=== PATIENT | female | born 1950 | race Caucasian/White ===

== ENCOUNTER 2016-06-28 09:25 | Outpatient (CLI) | payer MEDICARE, OTHER | END 2016-06-28 09:26 | disposition home or self-care (01) | DX: I10 Essential (primary) hypertension (principal); R73.03 Prediabetes ==

== ENCOUNTER 2017-05-18 14:02 | Emergency (ER) | payer MEDICARE, OTHER ==
[2017-05-18] MEDS ORDERED: LOPERAMIDE 2 MG CAPSULE PO STA (16:00)
[2017-05-18 16:26] VITALS: BP 104/70
--- NOTE | 2017-05-18 16:30 | ED Physician Documentation ---
PD HPI NVD - Stated complaint Stated Complaint: DIARRHEA - Chief complaint Chief Complaint: Abd Pain - History obtained from History obtained from: Patient - History of Present Illness Timing - onset: Today Timing - details: Still present Associated symptoms: No: Fever, Abdominal pain Similar symptoms before: Has not had sx before - Additonal information Additional information: The patient is a 66-year-old female who presents with diarrhea that started this morning, with about 10 episodes of watery diarrhea throughout the day. She denies abdominal pain. She has had nausea, without vomiting. She does report myalgias and a low-grade fever of 100. She denies cough, sore throat, or shortness of breath. She denies dysuria. She has no history of similar symptoms in the past. She has had a flu vaccine this year. Review of Systems Constitutional: reports: Fever (low-grade.), Fatigue Ears: denies: Tinnitus/ringing Nose: denies: Congestion Throat: denies: Sore throat Cardiac: denies: Chest pain / pressure Respiratory: reports: Cough. denies: Dyspnea GI: reports: Nausea, Diarrhea. denies: Abdominal Pain, Vomiting : denies: Dysuria Skin: denies: Rash Musculoskeletal: denies: Back pain Neurologic: reports: Headache (mild). 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 : Incontinence, Other HEENT: Chronic sinusitis Psych: Depression, Anxiety, Panic attacks, Claustrophobia Musculoskeletal: None Derm: Rosacea Other Past Medical History: NO BLOOD PRESSURE OR IV IN RIGHT ARM - Past Surgical History Past Surgical History: Yes General: Cholecystectomy, Colonoscopy /PUBLIC AREA ATTENDANT: Hysterectomy, Other - Present Medications Home Medications: Ambulatory Orders Medication Instructions Recorded Confirmed Cholecalciferol (Vitamin D3) 5,000 unit PO DAILY 02/02/15 05/18/17 [Vitamin D3] Fluticasone Propionate [Flovent 1 - 2 spray INH DAILY 02/02/15 05/18/17 Diskus] Iron Gly,Fum/C/B12/Me-Thfolate 1 each PO DAILY 02/02/15 05/18/17 [Maxaron Forte Tablet] Lisinopril 10 mg PO DAILY 02/02/15 05/18/17 Loratadine 10 mg PO DAILY 02/02/15 05/18/17 Multivitamin [Multivitamins] 1 each PO DAILY 02/02/15 05/18/17 Tretinoin [Retin-A] 1 applic TP DAILY 02/02/15 05/18/17 Venlafaxine ER [Effexor ER] 75 mg PO DAILY 02/02/15 05/18/17 metroNIDAZOLE 0.75% GEL 1 applic TOP DAILY 02/02/15 05/18/17 LORazepam [Lorazepam] 1 mg PO Q8H PRN 02/04/15 05/18/17 Glutamine [l-Glutamine] 3 gm PO DAILY 05/25/15 05/18/17 Anastrozole [Anastrozole] 1 mg PO DAILY 08/17/15 05/18/17 Omeprazole 40 mg PO DAILY 09/07/15 05/18/17 buPROPion [Wellbutrin Sr] 150 mg PO DAILY 01/11/16 05/18/17 Amox/Clav 500/125 [Augmentin] 1 each PO Q12H 08/15/16 05/18/17 Loperamide [Imodium] 2 mg PO BID PRN #10 capsule 05/18/17 Promethazine [Phenergan] 25 - 50 mg PO Q6H PRN #10 tab 05/18/17 - Allergies Allergies/Adverse Reactions: Allergies Allergy/AdvReac Type Severity Reaction Status Date / Time ciprofloxacin Allergy Intermediate Respiratory Verified 12/01/15 19:25 hydrocodone bitartrate * Allergy Intermediate Respiratory Verified 12/01/15 19: 25 [From Vicodin] Sulfa (Sulfonamide Allergy Intermediate Respiratory Verified 12/01/15 19:25 Antibiotics) NSAIDS (Non-Steroidal AdvReac Intermediate GI Distress Verified 12/01/15 19:25 Anti-Inflamma - Social History Does the pt smoke?: No Smoking Status: Never smoker Does the pt drink ETOH?: Yes Does the pt have substance abuse?: No - Immunizations Immunizations are current?: Yes - POLST Patient has POLST: Yes PD ED PE NORMAL - Vitals Vital signs reviewed: Yes (Borderline hypertension initially, but it normalized prior to discharge.) - General General: Alert and oriented X 3, Well developed/nourished - HEENT HEENT: Atraumatic, Moist mucous membranes, Pharynx benign - Neck Neck: No adenopathy, No JVD - Cardiac Cardiac: RRR, No murmur - Respiratory Respiratory: No respiratory distress, Clear bilaterally - Abdomen Abdomen: Normal bowel sounds, Soft, Non tender - Back Back: No CVA TTP - Derm Derm: No rash - Extremities Extremities: No edema, No calf tenderness / cord - Neuro Neuro: Alert and oriented X 3, No motor deficit, No sensory deficit Results - Vitals Vitals: Oxygen O2 Source Room air PD MEDICAL DECISION MAKING - ED course Complexity details: re-evaluated patient, considered differential, d/w patient ED course: The patient's presentation is most consistent with viral gastroenteritis with watery diarrhea. She does not appear dehydrated, and her abdominal exam is benign. Treatment in the emergency department included administration of Imodium 2 mg orally. She subsequently demonstrated ability to drink fluids without recurrent symptoms. She is being discharged with a prescription for Imodium and for Phenergan. I discussed with her the expected course of illness , symptomatic treatment and outpatient follow-up, as well as potentially worrisome signs or symptoms that should prompt reevaluation in the emergency department. Departure - Departure Disposition: 01 Home, Self Care Clinical Impression: Diarrhea Qualifiers: Diarrhea type: unspecified type Qualified Code(s): R19.7 - Diarrhea, unspecified Condition: Stable Instructions: ED Diarrhea Viral Follow-Up: Briana Blue MD [Primary Care Provider] - Prescriptions: Loperamide [Imodium] 2 mg PO BID PRN #10 capsule PRN Reason: Diarrhea Promethazine [Phenergan] 25 - 50 mg PO Q6H PRN #10 tab PRN Reason: Nausea / Vomiting Comments: Drink plenty of fluids. You can use Imodium as prescribed if needed for persistent diarrhea. Eat foods that are easily digestible, such as chicken noodle soup. Follow up with your primary physician within 1-2 weeks if not completely resolved. Return to the emergency department if you develop increasing abdominal pain, dehydration, or otherwise worsening symptoms. Discharge Date/Time: 05/18/17 16:34
== END 2017-05-18 16:34 | disposition home or self-care (01) ==
LOC: ED 14:02
DX: R19.7 Diarrhea, unspecified (principal); I10 Essential (primary) hypertension; G47.30 Sleep apnea, unspecified; K21.9 Gastro-esophageal reflux disease without esophagitis; Z86.010 Personal history of colon polyps; Z85.3 Personal history of malignant neoplasm of breast
CPT/HCPCS: 99283; A9270

== ENCOUNTER 2017-06-02 14:10 | Emergency (ER) | payer MEDICARE, OTHER ==
[2017-06-02 14:23] VITALS: BP 143/88
--- NOTE | 2017-06-02 14:49 | ED Physician Documentation ---
PD HPI Fall - Stated complaint Stated Complaint: HEAD PX/GLF - Chief complaint Chief Complaint: Neuro - History obtained from History obtained from: Patient - History of Present Illness Mechanism of injury: Slipped (she was standing on porch and missed edge as she stepped, falling backward onto buttock then back of head. Mild dizzy and nausea at the time, which persists into today.) Fall distance: Standing position Where injury occurred: Home Timing - onset: Last night Injury(ies) location: Head, Other (buttocks) Quality of pain: Aching Associated symptoms: AMS (dazed and feeling somewhat slow thinking and dizziness today. Has some vertigo component.). No: LOC, Amnesia, Weakness, Paresthesias, Nausea / vomiting Worsens with: Movement (feels dizzy with head movement, has some history of BPV in the past.), Palpation Contributing factors: No: Anticoagulated Similar symptoms before: Diagnosis (has BPV in the past, with some dizziness at times, usually brief.) Recently seen: Not recently seen Review of Systems Constitutional: denies: Fever, Chills Eyes: denies: Loss of vision, Decreased vision Nose: denies: Rhinorrhea / runny nose, Congestion Throat: denies: Sore throat Cardiac: denies: Chest pain / pressure, Palpitations Respiratory: denies: Cough GI: reports: Nausea. denies: Abdominal Pain, Vomiting, Diarrhea : denies: Dysuria, Frequency Skin: denies: Abrasion (s), Laceration (s) Neurologic: reports: Headache, Head injury. 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 : Incontinence, Other HEENT: Chronic sinusitis Psych: Depression, Anxiety, Panic attacks, Claustrophobia Musculoskeletal: None Derm: Rosacea - Past Surgical History Past Surgical History: Yes General: Cholecystectomy, Colonoscopy /BULK RECEIVER: Hysterectomy, Other - Present Medications Home Medications: Ambulatory Orders Medication Instructions Recorded Confirmed Cholecalciferol (Vitamin D3) 5,000 unit PO DAILY 02/02/15 06/02/17 [Vitamin D3] Lisinopril 10 mg PO DAILY 02/02/15 06/02/17 Loratadine 10 mg PO DAILY 02/02/15 06/02/17 Multivitamin [Multivitamins] 1 each PO DAILY 02/02/15 06/02/17 Tretinoin [Retin-A] 1 applic TP DAILY 02/02/15 06/02/17 Venlafaxine ER [Effexor ER] 112.5 mg PO DAILY 02/02/15 06/02/17 Anastrozole [Anastrozole] 1 mg PO DAILY 08/17/15 06/02/17 Omeprazole 40 mg PO DAILY 09/07/15 06/02/17 buPROPion [Wellbutrin Sr] 150 mg PO DAILY 01/11/16 06/02/17 - Allergies Allergies/Adverse Reactions: Allergies Allergy/AdvReac Type Severity Reaction Status Date / Time ciprofloxacin Allergy Intermediate Respiratory Verified 06/02/17 14:23 hydrocodone bitartrate * Allergy Intermediate Respiratory Verified 06/02/17 14: 23 [From Vicodin] Sulfa (Sulfonamide Allergy Intermediate Respiratory Verified 06/02/17 14:23 Antibiotics) NSAIDS (Non-Steroidal AdvReac Intermediate GI Distress Verified 06/02/17 14:23 Anti-Inflamma - Social History Does the pt smoke?: No Smoking Status: Never smoker Does the pt drink ETOH?: Yes Does the pt have substance abuse?: No - Immunizations Immunizations are current?: Yes - POLST Patient has POLST: Yes PD ED PE NORMAL - Vitals Vital signs reviewed: Yes - General General: Alert and oriented X 3, No acute distress, Well developed/nourished - HEENT HEENT: PERRL, EOMI, Pharynx benign, Other (posterior scalp with mild swelling locally and tender. ) - Neck Neck: Supple, no meningeal sign, No adenopathy - Cardiac Cardiac: RRR, No murmur - Respiratory Respiratory: Clear bilaterally - Abdomen Abdomen: Soft, Non tender - Back Back: No CVA TTP, No spinal TTP - Derm Derm: Normal color, Warm and dry - Extremities Extremities: No tenderness to palpate, Normal ROM s pain, Other (mild soft tissue tenderness right gluteal. No bony tenderness. ) - Neuro Neuro: Alert and oriented X 3, director specialty 2-12 intact, No motor deficit, No sensory deficit, Normal speech, Other Eye Opening: Spontaneous Motor: Obeys Commands Verbal: Oriented GCS Score: 15 - Psych Psych: Normal mood, Normal affect Results - Vitals Vitals: Oxygen O2 Source Room air - Rads (name of study) head Radiology: Prelim report reviewed, EMP read contemporaneously (no acute process) PD MEDICAL DECISION MAKING - ED course Complexity details: considered differential, d/w patient Departure - Departure Disposition: 01 Home, Self Care Clinical Impression: Accidental fall Qualifiers: Encounter type: initial encounter Qualified Code(s): W19.XXXA - Unspecified fall, initial encounter Head contusion Qualifiers: Encounter type: initial encounter Contusion of head detail: scalp Qualified Code(s): S00.03XA - Contusion of scalp, initial encounter Mild concussion Qualifiers: Encounter type: initial encounter Loss of consciousness presence/duration: without LOC Qualified Code(s): S06.0X0A - Concussion without loss of consciousness, initial encounter Condition: Stable Record reviewed to determine appropriate education?: Yes Instructions: ED Concussion Follow-Up: Briana Blue MD [Primary Care Provider] - Comments: Ibuprofen if needed for pains or headache. He can use meclizine for dizziness. The CT scan appears normal so no bleeding or obvious swelling. It does sound like mild concussive symptoms in these typically decrease over several days. It is possible to have jostled the balance center in the inner ear as well and would also taper down over several days typically. Discharge Date/Time: 06/02/17 16:23
[2017-06-02] MEDS ORDERED: ACETAMINOPHEN 325 MG TABLET PO STA (15:12)
--- NOTE | 2017-06-02 16:00 | CT Report ---
EXAM: CT HEAD EXAM DATE: 06/02/2017 03:52 PM. CLINICAL HISTORY: Fell last night, struck back of head. Mild concussion. COMPARISON: None. TECHNIQUE: Multiaxial CT images were obtained from the foramen magnum to the vertex. Reformats: Coron al. IV contrast: None. In accordance with CT protocol optimization, one or more of the following dose reduction techniques w ere utilized for this exam: automated exposure control, adjustment of mA and/or KV based on patient s ize, or use of iterative reconstructive technique. FINDINGS: Parenchyma: No intraparenchymal hemorrhage. No evidence of mass, midline shift, or CT findings of acu te infarction. José-white differentiation is distinct. Diffuse chronic microangiopathic white matter changes are evident. Extraaxial Spaces: Normal for age. No subdural or epidural collections identified. Ventricles: The ventricles and cortical sulci are enlarged, consistent with age-related tissue loss. Sinuses and orbits: Imaged paranasal sinuses, orbits, and mastoids show no significant abnormality. Bones: No evidence of fracture or calvarial defect. Other: None. IMPRESSION: Generalized age-related cortical atrophic changes without evidence of acute intracranial abnormality. [facility] Referring Provider Line: [phone] SITE ID: [id number]
== END 2017-06-02 16:23 | disposition home or self-care (01) ==
LOC: ED 14:10
DX: S00.03XA Contusion of scalp, initial encounter (principal); S06.0X9A Concussion with loss of consciousness of unspecified duration, initial encounter; W01.10XA Fall on same level from slipping, tripping and stumbling with subsequent striking against unspecified object, initial encounter; I10 Essential (primary) hypertension
CPT/HCPCS: 70450; 99282; 99283; A9270

== ENCOUNTER 2018-11-18 16:18 | Emergency (ER) | payer MEDICARE, OTHER ==
--- NOTE | 2018-11-18 17:30 | ED Physician Documentation ---
PD HPI HEENT - Stated complaint Stated Complaint: NAUSEA - Chief complaint Chief Complaint: Heent - History obtained from History obtained from: Patient - History of Present Illness Timing - onset: How many days ago (few) Timing - duration: Days (few) Timing - details: Abrupt onset (noted onset when turned head and has had it persist. Has had some nasal and sinus congestion the past few days as well. Has had BPV with vertigo on certain movements in the past, often, but usually only lasts minutes or hours.), Still present Location: Sinuses (some pressure feeling). No: Right ear, Left ear, Throat Improves: Other (holding head still) Worsens: Position, Other (head movement) Associated symptoms: Congestion. No: Fever, Unable to swallow, Facial swelling, Headache, Cough Similar symptoms before: Diagnosis (BPV per ENT eval. Has had it intermittently for years.) Recently seen: Not recently seen Review of Systems Constitutional: denies: Fever Eyes: denies: Loss of vision, Decreased vision Ears: denies: Ear pain, Drainage/discharge, Tinnitus/ringing Nose: reports: Congestion, Sinus pressure / pain (for few days). 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 TECHNOLOGIST: Hysterectomy, Other - Present Medications Home Medications: Ambulatory Orders Medication Instructions Recorded Confirmed Cholecalciferol (Vitamin D3) 5,000 unit PO DAILY 02/02/15 05/28/18 [Vitamin D3] Lisinopril 10 mg PO DAILY 02/02/15 05/28/18 Multivitamin [Multivitamins] 1 each PO DAILY 02/02/15 05/28/18 Tretinoin [Retin-A] 1 applic TP DAILY 02/02/15 05/28/18 Venlafaxine ER [Effexor ER] 112.5 mg PO DAILY 02/02/15 05/28/18 Omeprazole 40 mg PO DAILY 09/07/15 05/28/18 buPROPion [Wellbutrin Sr] 150 mg PO DAILY 01/11/16 05/28/18 Metronidazole [Metrocream] 2 applic TOP DAILY 11/27/17 05/28/18 Anastrozole 1 mg PO DAILY 90 Days #90 tablet 07/18/18 Cetirizine [ZyrTEC] 10 mg PO DAILY 11/18/18 11/18/18 Lisinopril 11/18/18 Ondansetron Odt [Zofran] 4 mg TL Q6H PRN #15 tablet 11/18/18 dexAMETHasone [Decadron] 4 mg PO DAILY #5 tablet 11/18/18 diazePAM [Diazepam] 5 mg PO TID PRN #20 tablet 11/18/18 - Allergies Allergies/Adverse Reactions: Allergies Allergy/AdvReac Type Severity Reaction Status Date / Time ciprofloxacin Allergy Intermediate Respiratory Verified 11/18/18 16:26 hydrocodone bitartrate * Allergy Intermediate Respiratory Verified 11/18/18 16:26 [From Vicodin] Sulfa (Sulfonamide Allergy Intermediate Respiratory Verified 11/18/18 16:26 Antibiotics) NSAIDS (Non-Steroidal AdvReac Intermediate GI Distress Verified 11/18/18 16:26 Anti-Inflamma - Social History Does the pt smoke?: No Smoking Status: Never smoker Does the pt drink ETOH?: Yes Does the pt have substance abuse?: No - Immunizations Immunizations are current?: Yes - POLST Patient has POLST: Yes PD ED PE NORMAL - Vitals Vital signs reviewed: Yes - General General: Alert and oriented X 3, No acute distress (but holding head pretty still. ), Well developed/nourished - HEENT HEENT: PERRL, EOMI (with nystagmus fast component to the right. ) - Neck Neck: Supple, no meningeal sign, No adenopathy - Cardiac Cardiac: RRR, No murmur - Respiratory Respiratory: Clear bilaterally - Derm Derm: Normal color, Warm and dry - Neuro Neuro: Alert and oriented X 3, crop roller 2-12 intact, No motor deficit, No sensory deficit, Normal speech Eye Opening: Spontaneous Motor: Obeys Commands Verbal: Oriented GCS Score: 15 - Psych Psych: Normal mood, Normal affect Results - Vitals Vitals: Vital Signs - 24 hr 11/18/18 11/18/18 16:23 18:47 Temperature 36.0 C L 36.1 C L Heart Rate 84 88 Respiratory 18 18 Rate Blood Pressure 167/95 H 147/83 H O2 Saturation 96 98 Oxygen O2 Source Room air PD MEDICAL DECISION MAKING - ED course Complexity details: considered differential (recurrent vertigo that seems peripheral. ), d/w patient Departure - Departure Disposition: 01 Home, Self Care Clinical Impression: Vertigo Nausea and vomiting Qualifiers: Vomiting type: unspecified Vomiting Intractability: non-intractable Qualified Code(s): R11.2 - Nausea with vomiting, unspecified Condition: Stable Record reviewed to determine appropriate education?: Yes Instructions: ED Vertigo Unspecified Follow-Up: Briana Blue MD [Primary Care Provider] - Prescriptions: dexAMETHasone [Decadron] 4 mg PO DAILY #5 tablet diazePAM [Diazepam] 5 mg PO TID PRN #20 tablet PRN Reason: Vertigo Ondansetron Odt [Zofran] 4 mg TL Q6H PRN #15 tablet PRN Reason: Nausea / Vomiting Comments: Continue your current medications and meclizine. To it add Decadron steroid for presumed inflammation of the middle ear. Add diazepam 3 times a day if needed for vertigo/dizziness to supplement your meclizine. Add ondansetron if needed for just nausea. Activity as tolerated. Follow-up with your primary care if still not improved in the next couple of days. Discharge Date/Time: 11/18/18 18:56
[2018-11-18] MEDS ORDERED: DEXAMETHASONE 10 MG/ML VIAL PO STA (17:44)
[2018-11-18] MEDS ORDERED: CHERRY SYRUP 10 ML UDC PO ONE (17:44)
[2018-11-18] MEDS ORDERED: diazePAM 5 MG TABLET PO STA (17:44)
[2018-11-18] MEDS ORDERED: ONDANSETRON ODT 4 MG TABLET TL STA (17:44)
[2018-11-18] MEDS ORDERED: MECLIZINE 12.5 MG TABLET PO STA (17:45)
[2018-11-18 18:47] VITALS: BP 147/83
== END 2018-11-18 18:56 | disposition home or self-care (01) ==
LOC: ED 16:18
DX: R11.2 Nausea with vomiting, unspecified (principal); I10 Essential (primary) hypertension
CPT/HCPCS: 99282; 99284; A9270; Q0162

== ENCOUNTER 2019-06-24 13:35 | Outpatient (CLI) | payer MEDICARE, OTHER ==
--- NOTE | 2019-07-01 12:20 | DEXA Report ---
Reason: POSTMENOPAUSAL Procedure Date: 06/24/2019 Accession Number: [id number] / [id number] Procedure: DEX - Dexa Spine and/or Hip CPT Code: Final Report FULL RESULT: EXAM: Dexa Spine and/or Hip DATE: 06/24/2019 2:17 PM CLINICAL HISTORY: POSTMENOPAUSAL TECHNIQUE: Dual energy x-ray absorptiometry (DXA) was performed on a [employer] System. Regions measured are the AP Spine, femoral neck, and if needed forearm. COMPARISON: None. In accordance with the International Society for Clinical Densitometry (ISCD) guidelines, data from previous exams may be reanalyzed using current recommendations and techniques. This is done to allow a more accurate basis for comparison with the current study. FINDINGS: The data for the lumbar spine is as follows: BMD (g/cm/cm) T-SCORE Z-SCORE REGION L1 1.095 -0.3 0.2 L2 1.298 0.8 1.3 L3 1.333 1.1 1.6 L4 1.317 1.0 1.5 TOTAL 1.269 0.7 1.2 NOTE: All evaluable vertebrae are used for classification The data for the hip is as follows: BMD (g/cm/cm) T-SCORE Z-SCORE REGION Neck 0.840 -1.4 -0.6 TOTAL 0.941 -0.5 0.0 NOTE: The femoral neck or total proximal femur, whichever is lowest, is used for classification. IMPRESSION: THE WHO CLASSIFICATION BASED ON THE INTERNATIONAL REFERENCE STANDARD IS OSTEOPENIA. THE FRACTURE RISK IS INCREASED. RECOMMENDATION: Patients with diagnosis of osteoporosis or osteopenia should have regular bone mineral density assessment. For those eligible for Medicare, routine testing is allowed once every 2 years. Testing frequency can be increased for patients who have rapidly progressing disease or for those who are receiving medical therapy to restore bone mass. COMMENT: World Health Organization (WHO) definitions for osteoporosis and osteopenia: NORMAL BMD: T-score at -1.0 or higher, fracture risk is low OSTEOPENIA BMD: T-score between -1.0 and -2.5, fracture risk is increased. OSTEOPOROSIS BMD: T-score at -2.5 or lower, fracture risk is high. National Osteoporosis Foundation recommends: 1. Obtain adequate dietary calcium (at least 1200 mg per day) and vitamin D (400-800 international units per day). 2. Participate, as appropriate, in regular weightbearing and muscle-strengthening exercise. 3. Avoid tobacco use and reduce alcohol and caffeine intake. 4. For more detailed information see the website at www.NOF.org.
== END 2019-06-24 13:36 | disposition home or self-care (01) ==
LOC: DI 13:35
PROVIDERS: ATTEND Internal Medicine Hematology & Oncology
DX: Z78.0 Asymptomatic menopausal state (principal); C50.911 Malignant neoplasm of unspecified site of right female breast; M85.88 Other specified disorders of bone density and structure, other site
CPT/HCPCS: 77080

== ENCOUNTER 2019-10-09 09:08 | Outpatient (CLI) | payer MEDICARE, OTHER ==
[2019-10-09 09:28] LABS: BASOPHILS % (AUTO) 0.9 %; EOSINOPHILS # (AUTO) 0.1 10^3/uL (0.0-0.7); HGB - HEMOGLOBIN 12.1 g/dL (12.0-16.0); LYMPHOCYTES # (AUTO) 1.2 10^3/uL (1.5-3.5); LYMPHOCYTES % (AUTO) 27.3 %; MEAN CORPUSCULAR HEMOGLOBIN 25.4 pg (27.0-31.0); MEAN CORPUSCULAR HGB CONC 31.5 g/dL (32.0-36.0); MEAN CORPUSCULAR VOLUME 80.7 fL (81.0-99.0); MEAN PLATELET VOLUME 8.6 fL (7.9-10.8); MONOCYTES # (AUTO) 0.4 10^3/uL (0.0-1.0); MONOCYTES % (AUTO) 9.2 %; NEUTROPHILS # (AUTO) 2.7 10^3/uL (1.5-6.6); NEUTROPHILS % (AUTO) 60.2 %; PLT - PLATELET COUNT 287 10^3/uL (130-450); RED BLOOD COUNT 4.76 10^6/uL (4.20-5.40); RED CELL DISTRIBUTION WIDTH 15.5 % (12.0-15.0); WHITE BLOOD COUNT 4.6 x10^3/uL (4.8-10.8)
[2019-10-09 09:41] LABS: HB2 TOTAL 12.5 g/dL; HEMOGLOBIN A1C 0.49 g/dL; HEMOGLOBIN A1C % 5.7 % (4.6-6.2)
[2019-10-09 09:52] LABS: ALBUMIN 3.7 g/dL (3.2-5.5); ALBUMIN/GLOBULIN RATIO 1.1 (1.0-2.2); ALKALINE PHOSPHATASE 68 IU/L (42-121); ALT ALANINE AMINOTRANSFERASE 21 IU/L (10-60); AST ASPARTATE AMINOTRANSFERASE 20 IU/L (10-42); BILIRUBIN,TOTAL 0.6 mg/dL (0.2-1.0); BUN - BLOOD UREA NITROGEN 16 mg/dL (6-20); CARBON DIOXIDE - CO2 25 mmol/L (21-32); CHLORIDE 107 mmol/L (101-111); CHOLESTEROL 186 mg/dL; CREATININE 0.8 mg/dL (0.4-1.0); GLUCOSE 125 mg/dL (70-100); HDL CHOLESTEROL 61 mg/dL; LDL CHOLESTEROL,CALCULATED 109 mg/dL; LDL/HDL RATIO 1.8 (<4.4); SODIUM 141 mmol/L (135-145); TOTAL PROTEIN 7.2 g/dL (6.7-8.2); VLDL CHOLESTEROL 16 mg/dL
== END 2019-10-09 09:09 | disposition home or self-care (01) ==
LOC: LAB 09:08
PROVIDERS: ATTEND Internal Medicine
DX: Z00.00 Encounter for general adult medical examination without abnormal findings (principal); C50.911 Malignant neoplasm of unspecified site of right female breast; Z17.0 Estrogen receptor positive status [ER+]; Z68.41 Body mass index [BMI] 40.0-44.9, adult; I10 Essential (primary) hypertension; R73.03 Prediabetes; E78.00 Pure hypercholesterolemia, unspecified
CPT/HCPCS: 36415; 80053; 80061; 83036; 83721; 84443; 85025

== ENCOUNTER 2020-10-12 13:12 | Outpatient (CLI) | payer MEDICARE, OTHER ==
[2020-10-12 13:38] LABS: BASOPHILS # (AUTO) 0.1 10^3/uL (0.0-0.1); EOSINOPHILS # (AUTO) 0.1 10^3/uL (0.0-0.7); EOSINOPHILS % (AUTO) 1.8 %; LYMPHOCYTES # (AUTO) 2.1 10^3/uL (1.5-3.5); LYMPHOCYTES % (AUTO) 41.7 %; MEAN CORPUSCULAR HEMOGLOBIN 25.3 pg (27.0-31.0); MEAN CORPUSCULAR HGB CONC 30.8 g/dL (32.0-36.0); MEAN CORPUSCULAR VOLUME 82.3 fL (81.0-99.0); MEAN PLATELET VOLUME 8.6 fL (7.9-10.8); MONOCYTES # (AUTO) 0.6 10^3/uL (0.0-1.0); MONOCYTES % (AUTO) 11.5 %; NEUTROPHILS # (AUTO) 2.2 10^3/uL (1.5-6.6); NEUTROPHILS % (AUTO) 43.6 %; PLT - PLATELET COUNT 287 10^3/uL (130-450); RED BLOOD COUNT 4.74 10^6/uL (4.20-5.40)
[2020-10-12 14:11] LABS: THYROID STIMULATING HORMONE 2.03 uIU/mL (0.34-5.60)
[2020-10-12 14:14] LABS: ALBUMIN 4.2 g/dL (3.2-5.5); ALBUMIN/GLOBULIN RATIO 1.4 (1.0-2.2); BILIRUBIN,TOTAL 0.4 mg/dL (0.2-1.0); CREATININE 0.8 mg/dL (0.4-1.0); POTASSIUM 4.3 mmol/L (3.5-5.0); TOTAL PROTEIN 7.3 g/dL (6.7-8.2)
== END 2020-10-12 13:13 | disposition home or self-care (01) ==
LOC: LAB 13:12
PROVIDERS: ATTEND Family Medicine
DX: R19.7 Diarrhea, unspecified (principal)
CPT/HCPCS: 36415; 80053; 84443; 85025

== ENCOUNTER 2020-10-13 08:00 | Outpatient (CLI) | payer MEDICARE, OTHER | END 2020-10-13 23:59 | disposition home or self-care (01) | LOC: LAB.R 08:00 | PROVIDERS: ATTEND Family Medicine | DX: R19.7 Diarrhea, unspecified (principal) | CPT/HCPCS: 81599; 87329 ==

== ENCOUNTER 2020-10-13 10:45 | Outpatient (CLI) | payer MEDICARE, OTHER ==
[2020-11-11 14:51] LABS: H. PYLORIS ANTIGEN STL NEGATIVE (Negative)
== END 2020-10-13 23:59 | disposition home or self-care (01) ==
LOC: LAB.R 10:45
PROVIDERS: ATTEND Family Medicine
DX: K21.9 Gastro-esophageal reflux disease without esophagitis (principal); R10.13 Epigastric pain
CPT/HCPCS: 87338

== ENCOUNTER 2020-11-15 11:12 | Outpatient (CLI) | payer MEDICARE, OTHER | END 2020-11-15 11:13 | disposition home or self-care (01) | LOC: LAB 11:12 | PROVIDERS: ATTEND Internal Medicine Gastroenterology | DX: Z01.812 Encounter for preprocedural laboratory examination (principal); Z86.010 Personal history of colon polyps; Z20.822 Contact with and (suspected) exposure to COVID-19 ==

== ENCOUNTER 2020-11-26 14:19 | Outpatient (CLI) | payer MEDICARE, OTHER | END 2020-11-26 14:20 | disposition home or self-care (01) | LOC: COV 14:19 | PROVIDERS: ATTEND Internal Medicine Gastroenterology | DX: Z01.812 Encounter for preprocedural laboratory examination (principal); Z20.822 Contact with and (suspected) exposure to COVID-19 ==

== ENCOUNTER 2021-02-28 18:52 | Emergency (ER) | payer MEDICARE, OTHER ==
[2021-02-28] MEDS ORDERED: ONDANSETRON 4 MG/2 ML VIAL IVP STA (20:03)
--- NOTE | 2021-02-28 20:05 | ED Physician Documentation ---
PD HPI FOCAL NEURO - Stated complaint Stated Complaint: HEADACHE/NAUSEA - Chief complaint Chief Complaint: Neuro - History obtained from History obtained from: Patient - Additional information Additional information: 70-year-old woman with remote history of resolved breast cancer. No history of primary headache syndrome. She is been having daily bandlike headaches around the back of her head for the last 3 weeks. Today worse but the headache is better now. It is associated with nausea. Was better yesterday after taking some Flonase and Mucinex, but recurred today. She not really having any sinus symptoms per se. 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, Other HEENT: Chronic sinusitis Psych: Depression, Anxiety, Panic attacks, Claustrophobia Musculoskeletal: None Derm: Rosacea - Past Surgical History Past Surgical History: Yes General: Cholecystectomy, Colonoscopy /REGIONAL SALES DIRECTOR: Hysterectomy, Other - Present Medications Home Medications: Ambulatory Orders Medication Instructions Recorded Confirmed Cholecalciferol (Vitamin D3) 5,000 unit PO DAILY 02/02/15 02/15/21 [Vitamin D3] Multivitamin [Multivitamins] 1 each PO DAILY 02/02/15 02/15/21 Tretinoin [Retin-A] 1 applic TP DAILY 02/02/15 02/15/21 Venlafaxine ER [Effexor ER] 112.5 mg PO DAILY 02/02/15 02/15/21 lisinopriL [Lisinopril] 10 mg PO DAILY 02/02/15 02/15/21 Omeprazole 40 mg PO DAILY 09/07/15 02/15/21 buPROPion [Wellbutrin Sr] 150 mg PO DAILY 01/11/16 02/15/21 Metronidazole [Metrocream] 2 applic TOP DAILY 11/27/17 02/15/21 Anastrozole 1 mg PO DAILY 90 Days #90 tablet 07/18/18 02/15/21 Cetirizine [ZyrTEC] 10 mg PO DAILY 11/18/18 02/15/21 Ondansetron Odt [Zofran] 4 mg TL Q6H PRN #10 tablet 02/28/21 - Allergies Allergies/Adverse Reactions: Allergies Allergy/AdvReac Type Severity Reaction Status Date / Time ciprofloxacin Allergy Intermediate Respiratory Verified 02/28/21 19:16 hydrocodone bitartrate * Allergy Intermediate Respiratory Verified 02/28/21 19:16 [From Vicodin] Sulfa (Sulfonamide Allergy Intermediate Respiratory Verified 02/28/21 19:16 Antibiotics) NSAIDS (Non-Steroidal AdvReac Intermediate GI Distress Verified 02/28/21 19:16 Anti-Inflamma - Social History Does the pt smoke?: No Smoking Status: Never smoker Does the pt drink ETOH?: Yes Does the pt have substance abuse?: No - Immunizations Immunizations are current?: Yes - POLST Patient has POLST: Yes PD ED PE NORMAL - Vitals Vital signs reviewed: Yes - General General: Alert and oriented X 3, No acute distress - HEENT HEENT: PERRL, EOMI, Pharynx benign - Neck Neck: Supple, no meningeal sign, No bony TTP - Cardiac Cardiac: RRR, No murmur - Respiratory Respiratory: No respiratory distress, Clear bilaterally - Abdomen Abdomen: Non tender - Derm Derm: Normal color, Warm and dry - Extremities Extremities: No edema, No calf tenderness / cord - Neuro Neuro: Alert and oriented X 3, Normal speech, Other (NIH stroke scale of 0) Results - Vitals Vitals: Vital Signs - 24 hr 02/28/21 02/28/21 02/28/21 19:09 21:20 22:09 Temperature 36.8 C 36.8 C Heart Rate 86 84 100 Respiratory 16 17 18 Rate Blood Pressure 146/99 H 154/84 H 162/98 H O2 Saturation 96 99 100 Oxygen O2 Source Room air - Labs Labs: Laboratory Tests 02/28/21 02/28/21 20:15 20:15 WBC 7.8 RBC 4.82 Hgb 12.5 Hct 40.5 MCV 84.0 MCH 25.9 L MCHC 30.9 L RDW 14.8 Plt Count 317 MPV 9.0 Neut # (Auto) 6.2 Lymph # (Auto) 1.0 L [place] # (Auto) 0.5 Eos # (Auto) 0.0 Baso # (Auto) 0.1 Absolute Nucleated RBC 0.00 Nucleated RBC % 0.0 Sodium 135 Potassium 3.8 Chloride 100 L Carbon Dioxide 26 Anion Gap 9.0 BUN 13 Creatinine 0.8 Estimated GFR (MDRD) 71 L Glucose 153 H Calcium 8.8 PD MEDICAL DECISION MAKING - ED course ED course: Kory is available at [phone] 70 yo female with daily headaches x 3 weeks without previous primary headache syndrome. Hx is not c/w meningitis, SAH. DDx still includes tumor, aneurysm et al. CTA as shown and concern for enlarged sella. D/W pt and need for f/u MRI, but not too urgent since similar milder findings on CT 3 yrs ago. Departure - Departure Disposition: 01 Home, Self Care Clinical Impression: Headache, Shallow and elongated sella turcica Condition: Good Record reviewed to determine appropriate education?: Yes Instructions: ED Cephalgia Unspecified Prescriptions: Ondansetron Odt [Zofran] 4 mg TL Q6H PRN #10 tablet PRN Reason: Nausea / Vomiting Comments: As discussed, talk with your PCP about MRI brain pituitary protocol. Return if worse. Discharge Date/Time: 02/28/21 22:09
[2021-02-28 20:26] LABS: BASOPHILS # (AUTO) 0.1 10^3/uL (0.0-0.1); BASOPHILS % (AUTO) 0.6 %; EOSINOPHILS % (AUTO) 0.4 %; HCT - HEMATOCRIT 40.5 % (37.0-47.0); HGB - HEMOGLOBIN 12.5 g/dL (12.0-16.0); LYMPHOCYTES % (AUTO) 12.4 %; MEAN CORPUSCULAR HEMOGLOBIN 25.9 pg (27.0-31.0); MEAN CORPUSCULAR HGB CONC 30.9 g/dL (32.0-36.0); MONOCYTES # (AUTO) 0.5 10^3/uL (0.0-1.0); MONOCYTES % (AUTO) 6.8 %; NEUTROPHILS # (AUTO) 6.2 10^3/uL (1.5-6.6); NEUTROPHILS % (AUTO) 79.5 %; PLT - PLATELET COUNT 317 10^3/uL (130-450); RED BLOOD COUNT 4.82 10^6/uL (4.20-5.40); RED CELL DISTRIBUTION WIDTH 14.8 % (12.0-15.0); WHITE BLOOD COUNT 7.8 x10^3/uL (4.8-10.8)
[2021-02-28 20:33] LABS: CALCIUM 8.8 mg/dL (8.5-10.3); CREATININE 0.8 mg/dL (0.4-1.0); POTASSIUM 3.8 mmol/L (3.5-5.0)
[2021-02-28] MEDS ORDERED: IOVERSOL 320 100 ML VIAL IVP ONE ×2 (20:43→21:08)
[2021-02-28] MEDS ORDERED: ACETAMINOPHEN 325 MG TABLET PO STA (21:22)
--- NOTE | 2021-02-28 21:31 | CT Report ---
PROCEDURE: ANGIO HEAD W/WO INDICATIONS: Headache CONTRAST: IV CONTRAST: Optiray 320 ml: 80 PO CONTRAST: *NO PO CONTRAST TECHNIQUE: Precontrast 4.5 mm thick angled axial sections acquired from the foramen magnum to the vertex. Afte r the administration of intravenous contrast, 1 mm thick sections acquired through the [place] of [place] is. Postcontrast 4.5 mm thick sections then re-acquired from the foramen magnum to the vertex. 3-di mensional fgupsjf-umdhwpbko-ouacxhlbjy (MIP) and/or volume rendering reformats were acquired of the c entral intracranial vasculature. For radiation dose reduction, the following was used: automated ex posure control, adjustment of mA and/or kV according to patient size. COMPARISON: 06/02/[address] FINDINGS: Image quality: Excellent. Anterior circulation: Intracranial internal carotid arteries are normal in size and flow. The flow within the paired anterior cerebral arteries is normal and symmetric. The flow within the middle cer ebral arteries is normal and symmetric. The anterior communicating artery is seen. No aneurysms are seen. Posterior circulation: Visualized portions of the vertebral arteries demonstrate normal caliber, and join to form a normal appearing basilar artery. Flow within the posterior cerebral arteries is norm al and symmetric. No aneurysms are seen. CSF spaces: Ventricles are normal in size and shape. Basal cisterns are patent. No extra-axial flu id collections. Brain: Marked enlargement of the sella turcica, increased from May 2017 exam. There is no obvious solid mass within the sella, although CT is less sensitive than MRI for sellar evaluation. No findin gs of mass effect or midline shift. No acute intracranial hemorrhage or abnormal extra-axial fluid co llection. The ventricular system and basilar cisterns are patent. Skull and face: Calvarium and facial bones appear intact, without suspicious lesions. Sinuses: Visualized sinuses and mastoids are clear. IMPRESSION: No acute intracranial abnormality. Marked enlargement of the sella has slightly increased when compared with 06/02/2017 exam. There does not appear to be an underlying mass, although a nonemergent outpatient pituitary protocol MRI would b e recommended. The findings could potentially be related to the underlying symptoms of headache and d izziness. Reviewed by: Erlin Sawant MD on 02/28/2021 9:30 PM PDT Approved by: Erlin Sawant MD on 02/28/2021 9:30 PM PDT Station ID: [id number]
[2021-02-28 22:11] VITALS: BP 162/98
== END 2021-02-28 22:09 | disposition home or self-care (01) ==
LOC: ED 18:52
DX: R51.9 Headache, unspecified (principal); R11.0 Nausea; R93.0 Abnormal findings on diagnostic imaging of skull and head, not elsewhere classified; I10 Essential (primary) hypertension; Z08 Encounter for follow-up examination after completed treatment for malignant neoplasm; Z85.3 Personal history of malignant neoplasm of breast
CPT/HCPCS: 36415; 70496; 80048; 85025; 96374; 99284; A9270; Q9967

== ENCOUNTER 2022-01-26 19:30 | Emergency (ER) | payer MEDICARE, OTHER ==
[2022-01-26] MEDS ORDERED: SODIUM CHLORIDE 0.9% 1,000 ML IV STA (19:44)
[2022-01-26 20:03] LABS: BASOPHILS % (AUTO) 0.7 %; EOSINOPHILS # (AUTO) 0.1 10^3/uL (0.0-0.7); EOSINOPHILS % (AUTO) 1.1 %; HCT - HEMATOCRIT 27.2 % (37.0-47.0); HGB - HEMOGLOBIN 8.6 g/dL (12.0-16.0); LYMPHOCYTES # (AUTO) 1.2 10^3/uL (1.5-3.5); LYMPHOCYTES % (AUTO) 20.9 %; MEAN CORPUSCULAR HEMOGLOBIN 24.7 pg (27.0-31.0); MEAN CORPUSCULAR HGB CONC 31.6 g/dL (32.0-36.0); MEAN CORPUSCULAR VOLUME 78.2 fL (81.0-99.0); MEAN PLATELET VOLUME 8.8 fL (7.9-10.8); MONOCYTES # (AUTO) 0.5 10^3/uL (0.0-1.0); MONOCYTES % (AUTO) 8.3 %; NEUTROPHILS # (AUTO) 3.9 10^3/uL (1.5-6.6); NEUTROPHILS % (AUTO) 68.6 %; PLT - PLATELET COUNT 226 10^3/uL (130-450); RED BLOOD COUNT 3.48 10^6/uL (4.20-5.40); RED CELL DISTRIBUTION WIDTH 16.1 % (12.0-15.0); WHITE BLOOD COUNT 5.7 x10^3/uL (4.8-10.8)
[2022-01-26 20:27] LABS: ALBUMIN/GLOBULIN RATIO 1.3 (1.0-2.2); BILIRUBIN,TOTAL 0.5 mg/dL (0.2-1.0); CALCIUM 9.2 mg/dL (8.5-10.3); CREATININE 0.9 mg/dL (0.4-1.0); POTASSIUM 3.7 mmol/L (3.5-5.0); TOTAL PROTEIN 7.1 g/dL (6.7-8.2)
--- NOTE | 2022-01-26 22:16 | CT Report ---
PROCEDURE: ANGIO HEAD W/WO INDICATIONS: NECK PAIN, VERTIGO CONTRAST: IV CONTRAST: Optiray 320 ml: 100 PO CONTRAST: *NO PO CONTRAST TECHNIQUE: Precontrast 4.5 mm thick angled axial sections acquired from the foramen magnum to the vertex. Afte r the administration of intravenous contrast, 1 mm thick sections acquired through the [place] of [place] is. Postcontrast 4.5 mm thick sections then re-acquired from the foramen magnum to the vertex. 3-di mensional efepufu-ofdvriaua-gugxwxtlnz (MIP) and/or volume rendering reformats were acquired of the c entral intracranial vasculature. For radiation dose reduction, the following was used: automated ex posure control, adjustment of mA and/or kV according to patient size. COMPARISON: CT head 06/02/2017, CTA head 02/28/2021. Concurrent CT angiogram of the neck. FINDINGS: Image quality: Excellent. Anterior circulation: Intracranial internal carotid arteries are patent bilaterally. There is multi focal calcification along the cavernous segments of the internal carotid arteries bilaterally with as sociated mild multifocal narrowing. The paired anterior cerebral arteries are patent bilaterally. Th e middle cerebral arteries are also patent bilaterally. The anterior communicating artery is patent. No high-grade stenosis, occlusion, or discrete filling defects. No cerebral aneurysm identified. Posterior circulation: Visualized portions of the vertebral arteries appear patent and join to form a patent basilar artery. The posterior cerebral arteries are patent bilaterally. No high-grade steno sis, occlusion, or discrete filling defects. No cerebral aneurysm identified. CSF spaces: There is moderate cerebral volume loss with prominence of the ventricles and sulci. Basa l cisterns are patent. No extra-axial fluid collections. Brain: No intracranial hemorrhage, mass, or mass effect. [place]-white matter interface is preserved. T here are subcortical and periventricular white matter hypodensities consistent with mild chronic smal l vessel ischemic changes. Skull and face: Calvarium and facial bones appear intact, without suspicious lesions. Sinuses: Visualized sinuses and mastoids are clear. IMPRESSION: 1. No definite acute intracranial abnormality. 2. Moderate cerebral volume loss and mild chronic white matter small vessel ischemic changes. 3. No high-grade stenosis or occlusion of the central intracranial arteries. Reviewed by: Al Zamarripa MD on 01/26/2022 10:15 PM PDT Approved by: Al Zamarripa MD on 01/26/2022 10:15 PM PDT Station ID: [id number]
--- NOTE | 2022-01-26 22:19 | CT Report ---
PROCEDURE: ANGIO NECK W INDICATIONS: neck pain, vertigo CONTRAST: IV CONTRAST: Optiray 320 ml: 100 PO CONTRAST: *NO PO CONTRAST TECHNIQUE: After the administration of intravenous contrast, 1.5 mm axial sections acquired from the aortic arch to the [place] of [place]. Coronal 3-D maximum intensity projection (MIP) and/or volume rendering ref ormats were then performed. For radiation dose reduction, the following was used: automated exposur e control, adjustment of mA and/or kV according to patient size. COMPARISON: Concurrent CT angiogram of the head. FINDINGS: Image quality: Excellent. Carotid system: The great vessels demonstrate a conventional anatomy as they arise from the aortic a rch. The origins of the common carotid arteries appear patent. The common carotid arteries demonstr ate normal calibers and courses. The carotid bulbs appear widely patent. The internal carotid arterie s demonstrate normal caliber and course. No intimal flaps or other evidence of dissection. Posterior circulation: The origins of the vertebral arteries appear patent. The more superior porti ons of the vertebral arteries demonstrate normal course and caliber. They join to form a patent basi lar artery. No intimal flaps or other findings to suggest dissection. Soft tissues: Visualized neck soft tissues demonstrate no suspicious abnormalities. The thyroid is normal in size and there are no incidental findings. Bones: No suspicious bony lesions. Visualized cervical spine demonstrates straightening of the cerv ical lordosis. There is multilevel degenerative disc disease and facet joint arthropathy. IMPRESSION: 1. No high-grade stenosis or occlusion of the head and neck arteries. 2. No evidence of arterial dissection. The estimate of stenosis included in the report of the imaging study was calculated using the NASCET method Reviewed by: Al Zamarripa MD on 01/26/2022 10:18 PM PDT Approved by: Al Zamarripa MD on 01/26/2022 10:18 PM PDT Station ID: [id number]
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
[2022-01-26 22:29] VITALS: BP 147/89
== END 2022-01-26 22:29 | disposition home or self-care (01) ==
LOC: ED 19:30
DX: R42 Dizziness and giddiness (principal); R11.0 Nausea; I10 Essential (primary) hypertension
CPT/HCPCS: 36415; 70496; 70498; 80053; 83690; 84484; 85025; 93005; 99284; Q9967

== ENCOUNTER 2022-07-07 09:00 | Outpatient (CLI) | payer MEDICARE ==
[2022-07-07 14:24] LABS: BASOPHILS # (AUTO) 0.1 10^3/uL (0.0-0.1); BASOPHILS % (AUTO) 1.3 %; EOSINOPHILS # (AUTO) 0.2 10^3/uL (0.0-0.7); EOSINOPHILS % (AUTO) 3.8 %; HCT - HEMATOCRIT 34.4 % (37.0-47.0); HGB - HEMOGLOBIN 10.2 g/dL (12.0-16.0); LYMPHOCYTES # (AUTO) 1.3 10^3/uL (1.5-3.5); LYMPHOCYTES % (AUTO) 31.8 %; MEAN CORPUSCULAR HGB CONC 29.7 g/dL (32.0-36.0); MEAN CORPUSCULAR VOLUME 77.5 fL (81.0-99.0); MEAN PLATELET VOLUME 9.4 fL (7.9-10.8); MONOCYTES # (AUTO) 0.5 10^3/uL (0.0-1.0); MONOCYTES % (AUTO) 11.6 %; NEUTROPHILS % (AUTO) 51.2 %; PLT - PLATELET COUNT 315 10^3/uL (130-450); RED BLOOD COUNT 4.44 10^6/uL (4.20-5.40)
[2022-07-07 15:54] LABS: ALBUMIN 3.6 g/dL (3.2-5.5); ALBUMIN/GLOBULIN RATIO 1.1 (1.0-2.2); ALKALINE PHOSPHATASE 42 IU/L (42-121); ALT ALANINE AMINOTRANSFERASE 37 IU/L (10-60); AST ASPARTATE AMINOTRANSFERASE 28 IU/L (10-42); BILIRUBIN,TOTAL 0.7 mg/dL (0.2-1.0); BUN - BLOOD UREA NITROGEN 15 mg/dL (6-20); CALCIUM 8.9 mg/dL (8.5-10.3); CARBON DIOXIDE - CO2 30 mmol/L (21-32); CHLORIDE 104 mmol/L (101-111); CHOL/HDL RATIO 3.7 (<4.4); CHOLESTEROL 212 mg/dL; CREATININE 0.7 mg/dL (0.4-1.0); GFR - MDRD 82 (>89); GLUCOSE 94 mg/dL (70-100); HDL CHOLESTEROL 58 mg/dL; LDL CHOLESTEROL,CALCULATED 141 mg/dL; LDL/HDL RATIO 2.4 (<4.4); POTASSIUM 4.1 mmol/L (3.5-5.0); SODIUM 137 mmol/L (135-145); TOTAL PROTEIN 6.8 g/dL (6.7-8.2); TRIGLYCERIDES 66 mg/dL; VLDL CHOLESTEROL 13 mg/dL
[2022-07-07 16:08] LABS: THYROID STIMULATING HORMONE 2.04 uIU/mL (0.34-5.60)
[2022-07-07 22:19] LABS: ESTIMATED AVERAGE GLUCOSE 123 mg/dL (70-100); HEMOGLOBIN A1c% 5.9 % (4.27-6.07)
== END 2022-07-07 09:01 | disposition home or self-care (01) ==
LOC: LAB.S 09:00
PROVIDERS: ATTEND Family Medicine
DX: I10 Essential (primary) hypertension (principal); R73.03 Prediabetes; K21.9 Gastro-esophageal reflux disease without esophagitis; E66.01 Morbid (severe) obesity due to excess calories; Z68.37 Body mass index [BMI] 37.0-37.9, adult
CPT/HCPCS: 36415; 80053; 80061; 83036; 83721; 84443; 85025

== ENCOUNTER 2022-10-09 02:45 | Outpatient (CLI) | payer MEDICARE | END 2022-10-09 02:46 | disposition left against medical advice (07) | LOC: EMS 02:45 | DX: R10.10 Upper abdominal pain, unspecified (principal) ==

== ENCOUNTER 2022-10-09 09:25 | Emergency (ER) | payer MEDICARE ==
--- NOTE | 2022-10-09 10:35 | ED Physician Documentation ---
PD HPI NVD - Stated complaint Stated Complaint: NAUSEA,DISCOMFORT - Chief complaint Chief Complaint: Abd Pain - History obtained from History obtained from: Patient - History of Present Illness Timing - onset: Last night Timing - details: Abrupt onset, Still present (but much improved.) Associated symptoms: Abdominal pain (she had abd cramping right upper abd and few loose diarrheal stools without blood nor mucous. Nause with emesis once. Is having some increased stool this AM. No fevers. No abd pain/persistent pain today.). No: Fever Contributing factors: No: Sick contact, Bad food, Recent antibiotics Similar symptoms before: Diagnosis (has some feeling like her gallbladder, but prior CCY.) Recently seen: Not recently seen Review of Systems Constitutional: reports: Myalgias. denies: Fever, Chills Nose: denies: Rhinorrhea / runny nose, Congestion Throat: denies: Sore throat Respiratory: denies: Cough Musculoskeletal: reports: Other (she also noted recent injury of left shoulder with a fall to the shoulder. Pain with some ROM. 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 : Incontinence, Other HEENT: Chronic sinusitis Psych: Depression, Anxiety, Panic attacks, Claustrophobia Musculoskeletal: None Derm: Rosacea - Past Surgical History Past Surgical History: Yes General: Cholecystectomy, Colonoscopy /PRIVATE WEALTH ADVISOR: Hysterectomy, Other - Present Medications Home Medications: Ambulatory Orders Medication Instructions Recorded Confirmed Cholecalciferol (Vitamin D3) 5,000 unit PO DAILY 02/02/15 10/09/22 [Vitamin D3] Multivitamin [Multivitamins] 1 each PO DAILY 02/02/15 10/09/22 Venlafaxine ER [Effexor ER] 112.5 mg PO DAILY 02/02/15 10/09/22 lisinopriL [Lisinopril] 10 mg PO DAILY 02/02/15 10/09/22 Omeprazole 40 mg PO DAILY 09/07/15 10/09/22 buPROPion [Wellbutrin Sr] 300 mg PO DAILY 01/11/16 10/09/22 Anastrozole 1 mg PO DAILY 90 Days #90 tablet 07/18/18 10/09/22 Cetirizine [ZyrTEC] 10 mg PO DAILY 11/18/18 10/09/22 Diclofenac Sodium 2 gm TP TID #100 gm 10/09/22 Fluticasone [Flonase] 2 sprays MARILUZ DAILY 10/09/22 10/09/22 - Allergies Allergies/Adverse Reactions: Allergies Allergy/AdvReac Type Severity Reaction Status Date / Time ciprofloxacin Allergy Intermediate Respiratory Verified 01/26/22 19:36 hydrocodone bitartrate * Allergy Intermediate Respiratory Verified 01/26/22 19:36 [From Vicodin] Sulfa (Sulfonamide Allergy Intermediate Respiratory Verified 01/26/22 19:36 Antibiotics) NSAIDS (Non-Steroidal AdvReac Intermediate GI Distress Verified 01/26/22 19:36 Anti-Inflamma - Social History Does the pt smoke?: No Smoking Status: Never smoker Does the pt drink ETOH?: Yes Does the pt have substance abuse?: No - Immunizations Immunizations are current?: Yes - POLST Patient has POLST: Yes PD ED PE NORMAL - Vitals Vital signs reviewed: Yes - General General: Alert and oriented X 3, No acute distress, Well developed/nourished - Cardiac Cardiac: RRR, No murmur - Respiratory Respiratory: Clear bilaterally - Abdomen Abdomen: Normal bowel sounds, Soft, Non tender, Non distended, No organomegaly - Back Back: No CVA TTP - Derm Derm: Normal color, Warm and dry - Extremities Extremities: Other (left shoulder with some tenderness posterior. No noted deformity. Pain with ROM gladys internal rotation, abduction, extension. Consider rotator cuff. ) - Neuro Neuro: Alert and oriented X 3, No motor deficit, No sensory deficit Results - Vitals Vitals: Vital Signs - 24 hr 10/09/22 10/09/22 10/09/22 09:29 11:35 12:56 Temperature 36.5 C Heart Rate 86 80 82 Respiratory 20 16 16 Rate Blood Pressure 156/91 H 187/104 H 150/85 H O2 Saturation 98 98 99 Oxygen O2 Source Room air - Labs Labs: Laboratory Tests 10/09/22 10/09/22 11:08 11:08 WBC 5.6 RBC 4.55 Hgb 11.6 L Hct 36.9 L MCV 81.1 MCH 25.5 L MCHC 31.4 L RDW 21.6 H Plt Count 284 MPV 8.9 Neut # (Auto) 4.4 Lymph # (Auto) 0.8 L Williams # (Auto) 0.3 Eos # (Auto) 0.0 Baso # (Auto) 0.0 Absolute Nucleated RBC 0.00 Nucleated RBC % 0.0 Manual Slide Review Indicated WBC Morphology NORMAL APPEARANCE Platelet Estimate NORMAL (130-450,000) Platelet Morphology NORMAL APPEARANCE RBC Morph Micro Appear 2+ HYPOCHROMASIA Sodium 136 Potassium 3.9 Chloride 104 Carbon Dioxide 27 Anion Gap 5.0 L BUN 10 Creatinine 0.6 Estimated GFR (MDRD) 99 Glucose 137 H Calcium 8.8 Total Bilirubin 0.4 AST 25 ALT 25 Alkaline Phosphatase 38 L Total Protein 7.2 Albumin 4.0 Globulin 3.2 Albumin/Globulin Ratio 1.3 Lipase 24 - Rads (name of study) left shoulder Relevant Findings:: Prelim report reviewed, EMP independent interpretation of test (no bony abmornality), See rad report PD Medical Decision Making - ED course Complexity details: reviewed results (blood tests are good in particular LFTs, Lipase, and WBC. Shoulder xray without bony abnormality and sounds like rotator cuff strain. ), considered differential (had RUQ pain and then loose stools overnight. Improving now. No pain/tenderness now. Prior CCY but says felt similar to GB. Consider brief CBD blockage and can test LFTs/lipase/CBC. If normal and no persistent pain, then would not work up further as likely viral GE, unless recurrent.), d/w patient Departure - Departure Disposition: 01 Home, Self Care Clinical Impression: Nausea vomiting and diarrhea, Left shoulder strain Condition: Stable Record reviewed to determine appropriate education?: Yes Prescriptions: Diclofenac Sodium 2 gm TP TID #100 gm Comments: Use the sling for much of the time to help support the shoulder and reduce irritation of the tendons. I think you have a rotator cuff strain causing your pain. Gentle range of motion of the shoulder several times daily without the sling to prevent it being stiff. No overhead reaching, push pull, lifting with it for the next 7 to 10 days to reduce irritation. We can try adding diclofenac topical NSAID to the area 3 times daily and that we will avoid any stomach affect of the NSAID. Add Tylenol 500 mg 4 times daily for pain as well. Regarding your stomach symptoms, I think this is probably a viral illness and should have symptoms for just a day or 2. Recheck if not better in that timeframe. You can use [id number] Imodium or such for diarrhea. [place] food for a day or 2. I sent your prescription to your preferred pharmacy. Discharge Date/Time: 10/09/22 12:57
[2022-10-09] MEDS ORDERED: LOPERAMIDE 2 MG CAPSULE PO STA (10:56)
[2022-10-09 11:24] LABS: BASOPHILS % (AUTO) 0.5 %; HCT - HEMATOCRIT 36.9 % (37.0-47.0); HGB - HEMOGLOBIN 11.6 g/dL (12.0-16.0); LYMPHOCYTES # (AUTO) 0.8 10^3/uL (1.5-3.5); LYMPHOCYTES % (AUTO) 14.6 %; MEAN CORPUSCULAR HEMOGLOBIN 25.5 pg (27.0-31.0); MEAN CORPUSCULAR HGB CONC 31.4 g/dL (32.0-36.0); MEAN CORPUSCULAR VOLUME 81.1 fL (81.0-99.0); MEAN PLATELET VOLUME 8.9 fL (7.9-10.8); MONOCYTES # (AUTO) 0.3 10^3/uL (0.0-1.0); NEUTROPHILS # (AUTO) 4.4 10^3/uL (1.5-6.6); NEUTROPHILS % (AUTO) 79.4 %; PLT - PLATELET COUNT 284 10^3/uL (130-450); RED BLOOD COUNT 4.55 10^6/uL (4.20-5.40); RED CELL DISTRIBUTION WIDTH 21.6 % (12.0-15.0); WHITE BLOOD COUNT 5.6 x10^3/uL (4.8-10.8)
[2022-10-09 11:29] LABS: ALBUMIN/GLOBULIN RATIO 1.3 (1.0-2.2); BILIRUBIN,TOTAL 0.4 mg/dL (0.2-1.0); CALCIUM 8.8 mg/dL (8.5-10.3); CREATININE 0.6 mg/dL (0.4-1.0); POTASSIUM 3.9 mmol/L (3.5-5.0); TOTAL PROTEIN 7.2 g/dL (6.7-8.2)
--- NOTE | 2022-10-09 11:42 | XRAY Report ---
PROCEDURE: Shoulder 3 View LT INDICATIONS: twisting injury shoulder with pain TECHNIQUE: 3 views of the shoulder were acquired. COMPARISON: None. FINDINGS: Bones: No fractures or dislocations. Mild degenerative changes at the savita clavicular joint. No rodríguez spicious bony lesions. Visualized ribs appear intact. Soft tissues: No suspicious soft tissue calcifications. IMPRESSION: No acute injury to the left shoulder. Mild AC joint degeneration. Reviewed by: Maribel Vazquez MD on 10/09/2022 10:40 AM JAX Approved by: Maribel Vazquez MD on 10/09/2022 10:40 AM JAX Station ID: [id number]
[2022-10-09 11:48] LABS: PLATELET ESTIMATE, MANUAL NORMAL (130-450,000) (NORMAL); PLATELET MORPHOLOGY NORMAL APPEARANCE (NORMAL); SLIDE REVIEW? Indicated
[2022-10-09 11:50] LABS: WBC MORPHOLOGY (MULTIPLE) NORMAL APPEARANCE (NORMAL)
[2022-10-09 12:58] VITALS: BP 150/85
== END 2022-10-09 12:57 | disposition home or self-care (01) ==
LOC: ED 09:25
DX: R11.2 Nausea with vomiting, unspecified (principal); R19.7 Diarrhea, unspecified; S46.912A Strain of unspecified muscle, fascia and tendon at shoulder and upper arm level, left arm, initial encounter; W19.XXXA Unspecified fall, initial encounter
CPT/HCPCS: 36415; 73030; 80053; 83690; 85025; 99284; A9270

== ENCOUNTER 2022-10-16 20:39 | Observation (INO) | payer MEDICARE ==
[2022-10-16 21:14] LABS: BASOPHILS # (AUTO) 0.1 10^3/uL (0.0-0.1); BASOPHILS % (AUTO) 0.7 %; EOSINOPHILS # (AUTO) 0.1 10^3/uL (0.0-0.7); EOSINOPHILS % (AUTO) 0.9 %; HCT - HEMATOCRIT 38.4 % (37.0-47.0); HGB - HEMOGLOBIN 12.1 g/dL (12.0-16.0); LYMPHOCYTES # (AUTO) 1.2 10^3/uL (1.5-3.5); LYMPHOCYTES % (AUTO) 14.2 %; MEAN CORPUSCULAR HEMOGLOBIN 25.7 pg (27.0-31.0); MEAN CORPUSCULAR HGB CONC 31.5 g/dL (32.0-36.0); MEAN CORPUSCULAR VOLUME 81.5 fL (81.0-99.0); MEAN PLATELET VOLUME 9.3 fL (7.9-10.8); MONOCYTES # (AUTO) 0.9 10^3/uL (0.0-1.0); MONOCYTES % (AUTO) 10.1 %; NEUTROPHILS # (AUTO) 6.3 10^3/uL (1.5-6.6); NEUTROPHILS % (AUTO) 73.6 %; PLT - PLATELET COUNT 300 10^3/uL (130-450); RED BLOOD COUNT 4.71 10^6/uL (4.20-5.40); RED CELL DISTRIBUTION WIDTH 21.4 % (12.0-15.0); WHITE BLOOD COUNT 8.5 x10^3/uL (4.8-10.8)
[2022-10-16 21:37] LABS: ALBUMIN 3.8 g/dL (3.2-5.5); ALBUMIN/GLOBULIN RATIO 1.1 (1.0-2.2); BILIRUBIN,TOTAL 4.5 mg/dL (0.2-1.0); CALCIUM 8.8 mg/dL (8.5-10.3); CREATININE 0.8 mg/dL (0.4-1.0); POTASSIUM 3.2 mmol/L (3.5-5.0); TOTAL PROTEIN 7.2 g/dL (6.7-8.2)
[2022-10-16 22:18] LABS: GLUCOSE, URINE (UA) NEGATIVE (NEGATIVE); KETONES,URINE (UA) 40 mg/dL (NEGATIVE); LEUKOCYTE ESTERASE, URINE MODERATE (NEGATIVE); NITRITE,URINE NEGATIVE (NEGATIVE); OCCULT BLOOD,URINE NEGATIVE (NEGATIVE); PROTEIN,URINE TRACE mg/dL (NEGATIVE); UROBILINOGEN,URINE 4 E.U./dL (NORMAL)
[2022-10-16 22:21] LABS: BILIRUBIN,URINE LARGE (NEGATIVE); CLARITY,URINE CLEAR (CLEAR); ICTOTEST,URINE POSITIVE
[2022-10-16 22:35] LABS: BACTERIA,URINE Few /HPF (None Seen); RBC,URINE 0-5 /HPF (0-5); SQUAMOUS EPITHELIAL CELL,UR MANY Squamous (<= Few); WBC CLUMPS,URINE PRESENT
[2022-10-16 22:36] LABS: MUCUS,URINE Few Strands
[2022-10-16] MEDS ORDERED: SODIUM CHLORIDE 0.9% 1,000 ML IV STA (23:24)
[2022-10-17] MEDS ORDERED: MORPHINE 2 MG/ML CARPUJECT IVP STA (00:36)
--- NOTE | 2022-10-17 00:40 | ED Physician Documentation ---
History of Present Illness - Stated complaint Stated Complaint: FEMALE GI - Chief complaint Chief Complaint: Abd Pain - History obtained from History obtained from: Patient, Family () - Additonal information Additional information: 71-year-old woman with history of htn, psh hyst, cholecystectomy presents with a week of right upper quadrant pain as well as constipation. Patient has been taking lactulose and having small bowel movements. She was just here last week had a pretty benign work-up, was sent home with diagnosis of likely viral syndrome. She states that she has had intermittent pain since that time usually occurring 15 to 30 minutes after meals in the right upper quadrant, nonradiating, sharp, 9 out of 10 tonight tapering down to 5 out of 10 after about an hour and a half. Review of Systems Constitutional: denies: Fever, Chills Nose: denies: Rhinorrhea / runny nose, Congestion Throat: denies: Sore throat Cardiac: denies: Chest pain / pressure Respiratory: denies: Dyspnea GI: reports: Abdominal Pain, Nausea, Constipation. 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 : Incontinence, Other HEENT: Chronic sinusitis Psych: Depression, Anxiety, Panic attacks, Claustrophobia Musculoskeletal: None Derm: Rosacea - Past Surgical History Past Surgical History: Yes General: Cholecystectomy, Colonoscopy /VENDOR MANAGEMENT CONSULTANT: Hysterectomy, Other - Present Medications Home Medications: Ambulatory Orders Medication Instructions Recorded Confirmed Cholecalciferol (Vitamin D3) 5,000 unit PO DAILY 02/02/15 10/16/22 [Vitamin D3] Multivitamin [Multivitamins] 1 each PO DAILY 02/02/15 10/16/22 Venlafaxine ER [Effexor ER] 112.5 mg PO DAILY 02/02/15 10/16/22 lisinopriL [Lisinopril] 20 mg PO DAILY 02/02/15 10/16/22 Omeprazole 40 mg PO DAILY 09/07/15 10/16/22 buPROPion [Wellbutrin Sr] 300 mg PO DAILY 01/11/16 10/16/22 Anastrozole 1 mg PO DAILY 90 Days #90 tablet 07/18/18 10/16/22 Cetirizine [ZyrTEC] 10 mg PO DAILY 11/18/18 10/16/22 Diclofenac Sodium 2 gm TP TID #100 gm 10/09/22 Fluticasone [Flonase] 2 sprays MARILUZ DAILY 10/09/22 10/16/22 Lactulose 15 ml PO TID 10/16/22 10/16/22 - Allergies Allergies/Adverse Reactions: Allergies Allergy/AdvReac Type Severity Reaction Status Date / Time ciprofloxacin Allergy Intermediate Respiratory Verified 10/16/22 20:43 hydrocodone bitartrate * Allergy Intermediate Respiratory Verified 10/16/22 20:43 [From Vicodin] Sulfa (Sulfonamide Allergy Intermediate Respiratory Verified 10/16/22 20:43 Antibiotics) NSAIDS (Non-Steroidal AdvReac Intermediate GI Distress Verified 10/16/22 20:43 Anti-Inflamma - Social History Does the pt smoke?: No Smoking Status: Former smoker Does the pt drink ETOH?: Yes Does the pt have substance abuse?: No - Immunizations Immunizations are current?: Yes - POLST Patient has POLST: Yes PD ED PE NORMAL - Vitals Vital signs reviewed: Yes - General General: Alert and oriented X 3, No acute distress, Well developed/nourished - HEENT HEENT: Atraumatic, PERRL, EOMI - Neck Neck: Supple, no meningeal sign - Cardiac Cardiac: RRR - Respiratory Respiratory: No respiratory distress, Clear bilaterally - Abdomen Abdomen: Non tender, Non distended, Other (Right upper quadrant and epigastric discomfort to palpation) - Derm Derm: Normal color, Warm and dry Results - Vitals Vitals: Vital Signs - 24 hr 10/16/22 10/16/22 10/16/22 20:43 21:00 23:09 Temperature 36.5 C Heart Rate 96 85 Respiratory 18 16 16 Rate Blood Pressure 146/87 H 156/82 H O2 Saturation 99 98 100 10/17/22 00:46 Temperature Heart Rate 84 Respiratory 16 Rate Blood Pressure 171/81 H O2 Saturation 100 Oxygen O2 Source Room air - Labs Labs: Laboratory Tests 10/16/22 10/16/22 10/16/22 20:59 20:59 22:10 WBC 8.5 RBC 4.71 Hgb 12.1 Hct 38.4 MCV 81.5 MCH 25.7 L MCHC 31.5 L RDW 21.4 H Plt Count 300 MPV 9.3 Neut # (Auto) 6.3 Lymph # (Auto) 1.2 L Dougherty # (Auto) 0.9 Eos # (Auto) 0.1 Baso # (Auto) 0.1 Absolute Nucleated RBC 0.00 Nucleated RBC % 0.0 Sodium 139 Potassium 3.2 L Chloride 104 Carbon Dioxide 25 Anion Gap 10.0 BUN 11 Creatinine 0.8 Estimated GFR (MDRD) 71 L Glucose 123 H Calcium 8.8 Total Bilirubin 4.5 H AST 272 H ALT 561 H Alkaline Phosphatase 208 H Total Protein 7.2 Albumin 3.8 Globulin 3.4 Albumin/Globulin Ratio 1.1 Lipase 36 Urine Color BROWN Urine Clarity CLEAR Urine pH 6.0 Ur Specific [place] 1.025 Urine Protein TRACE Urine Glucose (UA) NEGATIVE Urine Ketones 40 H Urine Occult Blood NEGATIVE Urine Nitrite NEGATIVE Urine Bilirubin LARGE H Urine Urobilinogen 4 H Ur Leukocyte Esterase MODERATE H Urine RBC 0-5 Urine WBC 11-25 H Urine WBC Clumps PRESENT Ur Squamous Epith Cells MANY Squamous H Urine Bacteria Few Urine Mucus Few Strands Ur Microscopic Review INDICATED Urine Culture Comments NOT INDICATED PD Medical Decision Making - ED course ED course: 71-year-old woman presents with right upper quadrant pain that is colicky in nature, with ultrasound performed showing CBD dilation to 10 mm. This is the upper limit of normal postcholecystectomy. Abdominal panel remarkable for AST/ALT 272/561, up from last week. This may reflect a viral pattern given the ALT is more elevated than AST.Could also reflect a stone in the CBD stump. Alk phos 208, up from 38 last week. CBC stable from previous. Plan to follow-up abdominal CT results. IV morphine provided for analgesia. Patient also received 1 L of normal saline. CT report reflects u/s and recommends admission for MRCP. d/w telehealth and patient is agreeable to admission for pain control, fluids, MRCP. Departure - Departure Disposition: 66 [facility] DC/Xfer Clinical Impression: Abdominal pain, Dilated cbd, acquired Condition: Stable
--- NOTE | 2022-10-17 00:47 | Ultrasound Report ---
PROCEDURE: Abdomen Limited INDICATIONS: RUQ pain, elevated AST/ALT, alp, concern for stone TECHNIQUE: Real-time focused scanning was performed of the abdomen, with image documentation. COMPARISONS: None. FINDINGS: Liver: Liver is normal in size without focal hepatic lesions identified. There is coarse sonographic echotexture. Gallbladder: Surgically absent. Biliary ducts: There is mild biliary ductal dilatation, with the visualized common bile duct measurin g up to 1 cm. Pancreas: The visualized pancreas appears unremarkable sonographically. Right kidney: Right kidney measures 8.9 cm. No hydronephrosis. IMPRESSION: 1. Mild biliary ductal dilatation is nonspecific and may reflect sequelae of prior cholecystectomy bu t correlation is recommended clinically including with laboratory values for possible biliary obstruc tion. Further evaluation may obtained with MRCP if clinically indicated. 2. No evidence of hydronephrosis. Reviewed by: Al Zamarripa MD on 10/17/2022 12:46 AM PDT Approved by: Al Zamarripa MD on 10/17/2022 12:46 AM PDT Station ID: [id number]
--- NOTE | 2022-10-17 01:26 | CT Report ---
PROCEDURE: ABDOMEN/PELVIS W INDICATIONS: ruq PAIN CONTRAST: 100 ML OMNI 350 TECHNIQUE: After the administration of intravenous contrast, 5 mm thick sections acquired from the diaphragms to the symphysis. 5 mm thick coronal and sagittal reformats were acquired. For radiation dose reducti on, the following was used: automated exposure control, adjustment of mA and/or kV according to anthony ent size. COMPARISON: Concurrent ultrasound of the right upper quadrant. FINDINGS: Image quality: Excellent. Lung bases:There is mild atelectasis and scarring the lung bases. Heart: Heart is normal in size. ABDOMEN: Liver: No mass lesion. Gallbladder:Surgically absent. Biliary ducts:There is mild intra and extra hepatic biliary ductal dilatation extending to the ampul la Vater without a discrete obstructing mass or stone visualized. The common bile duct measures up to approximately 1.0 cm. Pancreas:No pancreatic duct dilatation. No discrete pancreatic mass identified. Spleen: Normal in s ize. Adrenal Glands: No adrenal nodules. Kidneys and Ureters: No hydronephrosis. Stomach and Bowel: Stomach, small bowel loops, and colon are normal in caliber and wall thickness. T he appendix is normal. Peritoneum: No abnormal intraperitoneal fluid. No free air. Ventral Wall: No hernia. Abdominal Nodes: No retroperitoneal or mesenteric adenopathy by size criteria. Vessels: Aorta and inferior vena cava are normal in size. PELVIS: Pelvic Organs:The uterus is surgically absent. Bladder: Unremarkable. Pelvic Nodes: No enlarged lymph nodes. Miscellaneous: No inguinal hernias. Bones: Visualized osseous structures demonstrate no suspicious lesions. IMPRESSION: 1. Mild intra and extra hepatic biliary dilatation without a calcified obstructing stone or discrete mass. Recommend correlation clinically and if there is concern for biliary obstruction, further evalu ation may obtained with MRCP. Reviewed by: Al Zamarripa MD on 10/17/2022 1:25 AM PDT Approved by: Al Zamarripa MD on 10/17/2022 1:25 AM PDT Station ID: [id number]
[2022-10-17] MEDS ORDERED: ONDANSETRON 4 MG/2 ML VIAL IVP PRN (01:50)
[2022-10-17] MEDS ORDERED: HYDROcod/ACETAM 5/325 MG TABLET PO PRN (01:50)
[2022-10-17] MEDS ORDERED: SODIUM CHLORIDE FLUSH 0.9% 10 ML SYRINGE IVP PRN (01:50)
[2022-10-17] MEDS ORDERED: ACETAMINOPHEN 325 MG TABLET PO PRN (01:50)
[2022-10-17] MEDS ORDERED: SODIUM CHLORIDE 0.9% 1,000 ML IV SCH (02:00)
[2022-10-17] MEDS ORDERED: POTASSIUM CHLORIDE 20 MEQ TABLET PO STA (02:05)
[2022-10-17] MEDS ORDERED: lisinopriL 5 MG TABLET PO STA (02:06)
--- NOTE | 2022-10-17 02:18 | HISTORY & PHYSICAL EXAMINATION ---
Chief Complaint - Chief Complaint Chief Complaint: postprandial RUQ pain History of Present Illness - Admitted From Admitted From:: ED - History Obtained From Records Reviewed: EMR History obtained from: ED staff and Patient Exam Limitations: Tele medicine - History of Present Illness HPI Comment/Other: 71YOF s/p cholecystectomy many years ago p/w x 1 week postprandial RUQ abdominal pain. Patient notes nausea. No vomiting. No diarrhea. No fever. No trauma. Patient states pain better with npo/brat diet and worse with food. She states being seen in the ED a week ago and was given Imodium leading to constipation. She went to urgent care and was given lactulose and did received relief of constipation but continued RUQ abdominal pain. She denies NSAID use. Here in the ED, patient has a mild dilated CBD along with elevated LFTs. ED staff requesting hospitalization for MRCP. Pain at this time is controlled. 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: Breast cancer : reports: Incontinence, Other HEENT: reports: Chronic sinusitis Psych: reports: Depression, Anxiety, Panic attacks, Claustrophobia Musculoskeletal: reports: None Derm: reports: Rosacea MRSA Hx?: No - Past Surgical History General: reports: Cholecystectomy, Colonoscopy /REVENUE INVESTIGATOR: reports: Hysterectomy, Other - POLST Patient has POLST: Yes Meds/Allgy - Home Medications Home Medications: Ambulatory Orders Medication Instructions Recorded Confirmed Cholecalciferol (Vitamin D3) 5,000 unit PO DAILY 02/02/15 10/16/22 [Vitamin D3] Multivitamin [Multivitamins] 1 each PO DAILY 02/02/15 10/16/22 Venlafaxine ER [Effexor ER] 112.5 mg PO DAILY 02/02/15 10/16/22 lisinopriL [Lisinopril] 20 mg PO DAILY 02/02/15 10/16/22 Omeprazole 40 mg PO DAILY 09/07/15 10/16/22 buPROPion [Wellbutrin Sr] 300 mg PO DAILY 01/11/16 10/16/22 Anastrozole 1 mg PO DAILY 90 Days #90 tablet 07/18/18 10/16/22 Cetirizine [ZyrTEC] 10 mg PO DAILY 11/18/18 10/16/22 Diclofenac Sodium 2 gm TP TID #100 gm 10/09/22 Fluticasone [Flonase] 2 sprays MARILUZ DAILY 10/09/22 10/16/22 Lactulose 15 ml PO TID 10/16/22 10/16/22 - Allergies Allergies/Adverse Reactions: Allergies Allergy/AdvReac Type Severity Reaction Status Date / Time ciprofloxacin Allergy Intermediate Respiratory Verified 10/16/22 20:43 hydrocodone bitartrate * Allergy Intermediate Respiratory Verified 10/16/22 20:4 3 [From Vicodin] Sulfa (Sulfonamide Allergy Intermediate Respiratory Verified 10/16/22 20:43 Antibiotics) NSAIDS (Non-Steroidal AdvReac Intermediate GI Distress Verified 10/16/22 20:43 Anti-Inflamma Review of Systems - Constitutional Constitutional: denies: Fever, Chills - Eyes Eyes: reports: Other (no scleral icterus) - Cardiovascular Cariovascular: denies: Palpitations, Chest pain - Respiratory Respiratory: denies: SOB at rest - Gastrointestinal Gastrointestinal: reports: Abdominal pain, Constipation, Nausea, Other (pain worse with food). denies: Diarrhea, Vomiting - Genitourinary Genitourinary: denies: Dysuria - Integumentary Integumentary: denies: Rash Exam - Vital Signs Reviewed Vital Signs: Yes Vital Signs: Vital Signs x48h Temp Pulse Resp BP Pulse Ox 10/17/22 00:46 84 16 171/81 H 100 10/16/22 23:09 85 16 156/82 H 100 10/16/22 21:00 16 98 10/16/22 20:43 36.5 C 96 18 146/87 H 99 - Physical Exam General Appearance: positive: No acute distress Eyes Bilateral: positive: Normal inspection Neck: positive: Nml inspection Respiratory: positive: Breath sounds nml Cardiovascular: positive: Regular rate & rhythm Abdomen: positive: Tenderness (RUQ). negative: No distention, Guarding, Rebound Skin: positive: No rash Extremities: positive: Nml appearance Neurologic/Psychiatric: positive: Oriented x3, CN's nml (2-12), Mood/affect nml Conclusion/Plan - Problem List (1) Abdominal pain Conclusion/Plan: noted hx and labs and imaging consistent with CBD pathology. spoke with ED staff about MRCP in the ED and transfer for GI consult however ED requesting hospitalization for MRCP study. at ED request, patient admitted for MRCP. pain control. antiemetic. npo. iv fluid support. no signs of infection hence defer on abx at this time. followup acute hep panel. followup am labs. Qualifiers: Abdominal location: right upper quadrant Qualified Code(s): R10.11 - Right upper quadrant pain (2) Hypertension Conclusion/Plan: controlled. continue lisinopril. replete mild low potassium. monitor electrolytes and renal function with BMP (3) HARRISON on CPAP Conclusion/Plan: managing. restart home CPAP (4) Major depression, recurrent Conclusion/Plan: stable. no acute flare. restart home venalfaxine and bupropion (5) Anxiety Conclusion/Plan: stable. no acute flare. continue with venalfaxine and bupropion (6) Breast cancer Conclusion/Plan: remission. continue anastrozole. - Lab Results Lab results reviewed: Yes Fish Bones: 10/16/22 20:59 10/16/22 20:59 - Diagnostic Imaging Results Diagnostic Imaging Results: positive: Final report reviewed Diagnostic Imaging Results Comments: reviewed. there is CBD dilation. refer to final read for specifics. Core Measures - Anticipated LOS I expect patient to be DC'd or transferred within 96 hours.: Yes - Issues Hospital Issues and Management Plan: The patient consented to receive this telemedicine service, which I performed via live two-way audiovisual equipment. The patient is at ([facility]) and I am physically in [facility]. A nurse assisted me in the visit. - DVT/VTE - Prophylaxis VTE/DVT Device ordered at admit?: Yes Telemedicine Consult Details - Provider Location & Consult Time Telemedicine consultation conducted via videoconferencing?: Yes List names and roles of persons who participated in consult:: Patient, ED staff, RN Telemedicine provider location:: [facility] Time Telemedicine consult began:: 01:50 Time Telemedicine consult completed:: 02:50
[2022-10-17] MEDS ORDERED: LORazepam 2 MG/ML VIAL IVP PRN (02:24)
[2022-10-17 05:52] LABS: HCT - HEMATOCRIT 36.8 % (37.0-47.0); HGB - HEMOGLOBIN 11.6 g/dL (12.0-16.0); MEAN CORPUSCULAR HEMOGLOBIN 25.6 pg (27.0-31.0); MEAN CORPUSCULAR HGB CONC 31.5 g/dL (32.0-36.0); MEAN CORPUSCULAR VOLUME 81.2 fL (81.0-99.0); MEAN PLATELET VOLUME 9.1 fL (7.9-10.8); RED BLOOD COUNT 4.53 10^6/uL (4.20-5.40); RED CELL DISTRIBUTION WIDTH 21.7 % (12.0-15.0); WHITE BLOOD COUNT 5.9 x10^3/uL (4.8-10.8)
[2022-10-17 06:12] LABS: ALBUMIN 3.5 g/dL (3.2-5.5); ALBUMIN/GLOBULIN RATIO 1.1 (1.0-2.2); BILIRUBIN,TOTAL 4.7 mg/dL (0.2-1.0); CALCIUM 8.4 mg/dL (8.5-10.3); CREATININE 0.5 mg/dL (0.4-1.0); MAGNESIUM 1.8 mg/dL (1.7-2.8); PHOSPHORUS 2.8 mg/dL (2.5-4.6); POTASSIUM 3.7 mmol/L (3.5-5.0); TOTAL PROTEIN 6.8 g/dL (6.7-8.2)
[2022-10-17] MEDS ORDERED: PANTOPRAZOLE 40 MG TABLET PO SCH (07:00)
[2022-10-17] MEDS ORDERED: HYDROmorphone 0.5 MG/0.5 ML SYRINGE IVP PRN (07:43)
[2022-10-17] MEDS ORDERED: MULTIVITAMIN TABLET PO SCH (08:00)
[2022-10-17] MEDS: SODIUM CHLORIDE FLUSH 0.9% 10 ML SYRINGE IVP SCH ×2 (08:42→17:24)
[2022-10-17] MEDS ORDERED: DOCUSATE SODIUM 250 MG CAPSULE PO SCH (09:00)
[2022-10-17] MEDS ORDERED: lisinopriL 5 MG TABLET PO SCH ×2 (09:00→21:00)
[2022-10-17] MEDS ORDERED: MULTIVITAMIN PO SCH (09:00)
[2022-10-17] MEDS ORDERED: NON FORMULARY MED (Omeprazole [Omeprazole] 40 MG Capsule.Dr) PO SCH (09:00)
[2022-10-17] MEDS ORDERED: VENLAFAXINE ER 37.5 MG CAPSULE PO SCH (09:00)
[2022-10-17] MEDS ORDERED: FLUTICASONE NASAL SPRAY NAS SCH (09:00)
[2022-10-17] MEDS ORDERED: CHOLECALCIFEROL 5,000 UNIT CAPSULE PO SCH (09:00)
[2022-10-17] MEDS ORDERED: ANASTROZOLE 1 MG TABLET PO SCH ×2 (09:00→21:00)
[2022-10-17] MEDS ORDERED: buPROPion SR 150 MG TABLET PO SCH (09:00)
--- NOTE | 2022-10-17 10:45 | PHARMACY PROGRESS NOTE ---
- Best Possible Medication History Admit Date and Time: 10/17/22 0150 Processed by: Pharmacy Medication History completed: Yes Patient Interview: Completed Secondary Source(s): Pharmacy records As the person ultimately responsible for medication therapy, providers are able to order a medication from an existing home medication list in [facility] via the "Reconcile Routine" prior to Confirmation of that medication by applications support specialist. Such practice is discouraged except when the physician, in their clinical judgment, deems that a medical need exists for a medication without regard to previous use.
[2022-10-17] MEDS ORDERED: GADOBUTROL 10 MMOL/10 ML VIAL ONE (11:12)
--- NOTE | 2022-10-17 13:17 | MRI Report ---
PROCEDURE: MRCP W/WO INDICATIONS: dilated CBD c elevated LFTs. r/o choledocholithias CONTRAST: 100 ML OMNI 350 TECHNIQUE: Coronal ultra fast SE through the abdomen, axial 2-D spoiled GE in- and [id number], and breath-hold T2 FSE with fat saturation through the biliary system and pancreas. Oblique coronal and axial thin- slice ultra fast SE, radial thick-slab ultra fast SE centered on the extrahepatic bile ducts. COMPARISON: CT abdomen 10/16/2022 FINDINGS: Image quality: Excellent. Gallbladder: Surgically absent although the cystic duct remnant is slightly dilated. Biliary tree: There is a 6 mm stone at the distal end of the common duct causing proximal intra and e xtrahepatic biliary dilatation. Common bile duct measures up to 1.0 cm and the central intrahepatic d ucts measure up to 0.8 cm. Pancreas: The pancreatic duct is nondilated, normal caliber, and demonstrates classic ductal anatomy. Lung bases and heart: No significant pleural effusion. Normal size heart. Liver: A multilobulated 2.3 cm, T2 hyperintense mass in the anterior segment 3 is not well seen due t o motion artifact on arterial imaging but follows blood pool on venous and delayed phase imaging. No suspicious liver lesions. Spleen: No splenomegaly. Adrenals: No adrenal nodule. Kidneys and ureters: No hydronephrosis. No renal cystic lesion which requires follow up. No solid mas s. Bowel and peritoneum: No bowel distension. No pathologic free fluid. Lymph nodes: No central or retroperitoneal adenopathy. Vessels: No infrarenal aortic aneurysm. Bones: No aggressive osseous abnormality. Other: No significant ventral hernia. IMPRESSION: 1. Obstructing choledocholithiasis at the distal common duct. No pancreatic ductal dilatation. Obstru cting stone measures 6 mm. 2. 2.3 cm left hepatic lobe hemangioma. Reviewed by: Maribel Vazquez MD on 10/17/2022 1:16 PM PDT Approved by: Maribel Vazquez MD on 10/17/2022 1:16 PM PDT Station ID: [id number]
[2022-10-17 15:39] LABS: GLUCOSE, URINE (UA) NEGATIVE (NEGATIVE); KETONES,URINE (UA) 15 mg/dL (NEGATIVE); LEUKOCYTE ESTERASE, URINE NEGATIVE (NEGATIVE); NITRITE,URINE NEGATIVE (NEGATIVE); OCCULT BLOOD,URINE NEGATIVE (NEGATIVE); PROTEIN,URINE NEGATIVE (NEGATIVE); UROBILINOGEN,URINE 2 E.U./dL (NORMAL)
--- NOTE | 2022-10-17 15:41 | Discharge Plan ---
Discharge Plan Problem Reviewed?: Yes Disposition: 02 Transfer Acute Care Hosp Condition: Stable No Smoking: If you smoke, Please STOP! Call for help.
--- NOTE | 2022-10-17 15:42 | DISCHARGE SUMMARY ---
Discharge Summary Admit Date: 10/16/22 Discharge Date: 10/17/22 Discharging Provider: Dr Boyd Code Status: Attempt Resuscitation Condition at Discharge: Stable Discharge Disposition: 02 Transfer Acute Care Hosp - DIAGNOSES Admission Diagnoses: HPI Comment/Other: 71YOF s/p cholecystectomy many years ago p/w x 1 week postprandial RUQ abdominal pain. Patient notes nausea. No vomiting. No diarrhea. No fever. No trauma. Patient states pain better with npo/brat diet and worse with food. She states being seen in the ED a week ago and was given Imodium leading to constipation. She went to urgent care and was given lactulose and did received relief of constipation but continued RUQ abdominal pain. She denies NSAID use. Here in the ED, patient has a mild dilated CBD along with elevated LFTs. ED staff requesting hospitalization for MRCP. Pain at this time is controlled. 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 : reports: Incontinence, Other HEENT: reports: Chronic sinusitis Psych: reports: Depression, Anxiety, Panic attacks, Claustrophobia Musculoskeletal: reports: None Derm: reports: Rosacea MRSA Hx?: No - Past Surgical History General: reports: Cholecystectomy, Colonoscopy /CASINO BEVERAGE SERVER: reports: Hysterectomy, Other - POLST Patient has POLST: Yes Meds/Allgy - Home Medications Home Medications: Ambulatory Orders Medication Instructions Recorded Confirmed Cholecalciferol (Vitamin D3) 5,000 unit PO DAILY 02/02/15 10/16/22 [Vitamin D3] Multivitamin [Multivitamins] 1 each PO DAILY 02/02/15 10/16/22 Venlafaxine ER [Effexor ER] 112.5 mg PO DAILY 02/02/15 10/16/22 lisinopriL [Lisinopril] 20 mg PO DAILY 02/02/15 10/16/22 Omeprazole 40 mg PO DAILY 09/07/15 10/16/22 buPROPion [Wellbutrin Sr] 300 mg PO DAILY 01/11/16 10/16/22 Anastrozole 1 mg PO DAILY 90 Days #90 tablet 07/18/18 10/16/22 Cetirizine [ZyrTEC] 10 mg PO DAILY 11/18/18 10/16/22 Diclofenac Sodium 2 gm TP TID #100 gm 10/09/22 Fluticasone [Flonase] 2 sprays MARILUZ DAILY 10/09/22 10/16/22 Lactulose 15 ml PO TID 10/16/22 10/16/22 - Allergies Allergies/Adverse Reactions: Allergies Allergy/AdvReac Type Severity Reaction Status Date / Time ciprofloxacin Allergy Intermediate Respiratory Verified 10/16/22 20:43 hydrocodone bitartrate * Allergy Intermediate Respiratory Verified 10/16/22 20:43 [From Vicodin] Sulfa (Sulfonamide Allergy Intermediate Respiratory Verified 10/16/22 20:43 Antibiotics) NSAIDS (Non-Steroidal AdvReac Intermediate GI Distress Verified 10/16/22 20:43 Anti-Inflamma Review of Systems - Constitutional Constitutional: denies: Fever, Chills - Eyes Eyes: reports: Other (no scleral icterus) - Cardiovascular Cariovascular: denies: Palpitations, Chest pain - Respiratory Respiratory: denies: SOB at rest - Gastrointestinal Gastrointestinal: reports: Abdominal pain, Constipation, Nausea, Other (pain worse with food). denies: Diarrhea, Vomiting - Genitourinary Genitourinary: denies: Dysuria - Integumentary Integumentary: denies: Rash Exam - Vital Signs Reviewed Vital Signs: Yes Vital Signs: Vital Signs x48h Temp Pulse Resp BP Pulse Ox 10/17/22 00:46 84 16 171/81 H 100 10/16/22 23:09 85 16 156/82 H 100 10/16/22 21:00 16 98 10/16/22 20:43 36.5 C 96 18 146/87 H 99 - Physical Exam General Appearance: positive: No acute distress Eyes Bilateral: positive: Normal inspection Neck: positive: Nml inspection Respiratory: positive: Breath sounds nml Cardiovascular: positive: Regular rate & rhythm Abdomen: positive: Tenderness (RUQ). negative: No distention, Guarding, Rebound Skin: positive: No rash Extremities: positive: Nml appearance Neurologic/Psychiatric: positive: Oriented x3, CN's nml (2-12), Mood/affect nml Conclusion/Plan - Problem List (1) Abdominal pain Conclusion/Plan: noted hx and labs and imaging consistent with CBD pathology. spoke with ED staff about MRCP in the ED and transfer for GI consult however ED requesting hospitalization for MRCP study. at ED request, patient admitted for MRCP. pain control. antiemetic. npo. iv fluid support. no signs of infection hence defer on abx at this time. followup acute hep panel. followup am labs. 10/17/2022-- MRCP showed Obstructing choledocholithiasis .6 mm stone at distal end of of the common bile duct causing proximal intra and extrahepatic biliary dilatation Common bile duct measures up to 1.0 cm and central intrahepatic ducts measure up tp 0.8 cm. Transfer arranged to send patient to [facility] for ERCP in AM by Dr Suresh. Accepted by hospitalist Dr Matias Jacques. Qualifiers: Abdominal location: right upper quadrant Qualified Code(s): R10.11 - Right upper quadrant pain (2) Hypertension Conclusion/Plan: controlled. continue lisinopril. replete mild low potassium. monitor electrolytes and renal function with BMP (3) HARRISON on CPAP Conclusion/Plan: managing. restart home CPAP (4) Major depression, recurrent Conclusion/Plan: stable. no acute flare. restart home venalfaxine and bupropion (5) Anxiety Conclusion/Plan: stable. no acute flare. continue with venalfaxine and bupropion (6) Breast cancer Conclusion/Plan: remission. continue anastrozole. - Lab Results Lab results reviewed: Yes Fish Bones: 10/16/22 20:59 10/16/22 20:59 - Diagnostic Imaging Results Diagnostic Imaging Results: positive: Final report reviewed Diagnostic Imaging Results Comments: reviewed. there is CBD dilation. refer to final read for specifics. - ALLERGIES Allergies/Adverse Reactions: Allergies Allergy/AdvReac Type Severity Reaction Status Date / Time ciprofloxacin Allergy Intermediate Respiratory Verified 10/16/22 20:43 hydrocodone bitartrate * Allergy Intermediate Respiratory Verified 10/16/22 20:43 [From Vicodin] Sulfa (Sulfonamide Allergy Intermediate Respiratory Verified 10/16/22 20:43 Antibiotics) NSAIDS (Non-Steroidal AdvReac Intermediate GI Distress Verified 10/16/22 20:43 Anti-Inflamma - MEDICATIONS Home Medications: Ambulatory Orders Medication Instructions Recorded Confirmed Cholecalciferol (Vitamin D3) 5,000 unit PO DAILY 02/02/15 10/16/22 [Vitamin D3] Multivitamin [Multivitamins] 1 each PO DAILY 02/02/15 10/16/22 lisinopriL [Lisinopril] 20 mg PO DAILY 02/02/15 10/16/22 Omeprazole 40 mg PO DAILY 09/07/15 10/16/22 buPROPion [Wellbutrin Sr] 300 mg PO DAILY 01/11/16 10/16/22 Anastrozole 1 mg PO DAILY 90 Days #90 tablet 07/18/18 10/16/22 Cetirizine [ZyrTEC] 10 mg PO DAILY 11/18/18 10/16/22 Fluticasone [Flonase] 2 sprays MARILUZ HS 10/09/22 10/17/22 Ondansetron Odt [Zofran Odt] 4 mg SL TID PRN 10/17/22 10/17/22 Tretinoin [Retin-A] 0.5 gm TOP HS 10/17/22 10/17/22 Venlafaxine ER [Effexor ER] 3 cap PO DAILY 10/17/22 10/17/22 - PHYSICAL EXAM AT DISCHARGE General Appearance: positive: Alert Eyes Bilateral: positive: Normal inspection Neck: positive: Nml inspection Respiratory: positive: Chest non-tender, No respiratory distress, Breath sounds nml Cardiovascular: positive: Regular rate & rhythm Abdomen: positive: Other (mild tenderness in RUQ,no rebound ,no guarding) Extremities: positive: No pedal edema Neurologic/Psychiatric: positive: Oriented x3 - LABS Result Diagrams: 10/17/22 05:28 10/17/22 05:28 Other Lab Results: Repeat labs this a.m. showed total bilirubin of 4.7 AST of 215 and ALT of 493 alkaline phosphatase of 200 lipase of 28 WBCs 5.9 - TIME SPENT Time Spent in Discharge (Minutes): 60
[2022-10-17 15:50] LABS: BACTERIA,URINE None Seen /HPF (None Seen); BILIRUBIN,URINE LARGE (NEGATIVE); CLARITY,URINE CLEAR (CLEAR); ICTOTEST,URINE POSITIVE; RBC,URINE None Seen /HPF (0-5); SQUAMOUS EPITHELIAL CELL,UR RARE Squamous (<= Few); WBC,URINE 0-3 /HPF (0-5)
[2022-10-17 15:52] VITALS: BP 151/86
[2022-10-17] MEDS ORDERED: PIPERACILLIN/TAZOBACTAM 3.375 GM in SODIUM CHLORIDE 0.9% MINIBAG 100 ML IV ONE (16:00)
[2022-10-17] MEDS ORDERED: GADOBUTROL 10 MMOL/10 ML VIAL IVP ONE (16:06)
[2022-10-17] MEDS ORDERED: PIPERACILLIN/TAZOBACTAM 3.375 GM in SODIUM CHLORIDE 0.9% MINIBAG 100 ML IV SCH (19:00)
[2022-10-17] MEDS ORDERED: CETIRIZINE 10 MG TABLET PO SCH (21:00)
[2022-10-18 05:13] LABS: HBsAG SCREEN Negative (Negative); HCV AB Non Reactive (Non Reactive); HEPATITIS B CORE IGM AB Negative (Negative)
== END 2022-10-17 17:45 | disposition short-term general hospital (02) ==
LOC: ED 20:39 → MS2 10-17 01:50
PROVIDERS: ADMIT Internal Medicine; ATTEND Internal Medicine
DX: K80.81 Other cholelithiasis with obstruction (principal); G47.33 Obstructive sleep apnea (adult) (pediatric); I10 Essential (primary) hypertension; F33.9 Major depressive disorder, recurrent, unspecified; F41.9 Anxiety disorder, unspecified; D49.3 Neoplasm of unspecified behavior of breast; Z87.891 Personal history of nicotine dependence
CPT/HCPCS: 36415; 74177; 74183; 76705; 80053; 80074; 81001; 83690; 83735; 84100; 84145; 85025; 85027; 96374; 96375; 99284; 99285; A9270; A9585; G0378; J2060; Q9967; 81003; 87086

== ENCOUNTER 2022-12-18 18:27 | Outpatient (CLI) | payer MEDICARE | END 2022-12-18 23:59 | disposition critical access hospital (66) | LOC: EMS 18:27 | DX: R42 Dizziness and giddiness (principal); R11.2 Nausea with vomiting, unspecified; R51.9 Headache, unspecified | CPT/HCPCS: A0425; A0427 ==

== ENCOUNTER 2022-12-18 18:47 | Emergency (ER) | payer MEDICARE ==
[2022-12-18] MEDS: DROPERIDOL 5 MG/2 ML VIAL IVP STA (19:01)
[2022-12-18] MEDS: SODIUM CHLORIDE 0.9% 1,000 ML IV STA (19:08)
--- NOTE | 2022-12-18 19:12 | ED Physician Documentation ---
History of Present Illness - Stated complaint Stated Complaint: DIZZINESS/VERTIGO - Chief complaint Chief Complaint: Neuro - History obtained from History obtained from: Patient, EMS - History of Present Illness Timing: How many days ago (5) Pain level max: 0 Pain level now: 0 - Additonal information Additional information: Patient is a 72-year-old female who presents to the emergency department with the sudden onset of vertigo about 3 days ago. She has been battling vertigo for many years. She states that this seems to occur about every 2 to 3 months. Has an appointment with a vestibular specialist tomorrow. She has had nausea and vomiting today, tried Zofran without relief. Worse with movement, better with rest. No headache. No head injury. No fall. No trauma. No other focal neurological deficits. Review of Systems Constitutional: denies: Fever, Chills Cardiac: denies: Chest pain / pressure, Palpitations Respiratory: denies: Cough GI: reports: Nausea, Vomiting. 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 : Incontinence, Other HEENT: Chronic sinusitis Psych: Depression, Anxiety, Panic attacks, Claustrophobia Musculoskeletal: None Derm: Rosacea - Past Surgical History Past Surgical History: Yes General: Cholecystectomy, Colonoscopy /PLASTICS ENGINEERING TEACHER: Hysterectomy, Other - Present Medications Home Medications: Ambulatory Orders Medication Instructions Recorded Confirmed Cholecalciferol (Vitamin D3) 5,000 unit PO DAILY 02/02/15 10/16/22 [Vitamin D3] Multivitamin [Multivitamins] 1 each PO DAILY 02/02/15 10/16/22 lisinopriL [Lisinopril] 20 mg PO DAILY 02/02/15 10/16/22 Omeprazole 40 mg PO DAILY 09/07/15 10/16/22 buPROPion [Wellbutrin Sr] 300 mg PO DAILY 01/11/16 10/16/22 Anastrozole 1 mg PO DAILY 90 Days #90 tablet 07/18/18 10/16/22 Cetirizine [ZyrTEC] 10 mg PO DAILY 11/18/18 10/16/22 Fluticasone [Flonase] 2 sprays MARILUZ HS 10/09/22 10/17/22 Ondansetron Odt [Zofran Odt] 4 mg SL TID PRN 10/17/22 10/17/22 Tretinoin [Retin-A] 0.5 gm TOP HS 10/17/22 10/17/22 Venlafaxine ER [Effexor ER] 3 cap PO DAILY 10/17/22 10/17/22 Promethazine [Phenergan] 25 mg PO Q6H PRN #10 tab 12/18/22 - Allergies Allergies/Adverse Reactions: Allergies Allergy/AdvReac Type Severity Reaction Status Date / Time ciprofloxacin Allergy Intermediate Respiratory Verified 10/16/22 20:43 hydrocodone bitartrate * Allergy Intermediate Respiratory Verified 10/16/22 20:43 [From Vicodin] Sulfa (Sulfonamide Allergy Intermediate Respiratory Verified 10/16/22 20:43 Antibiotics) NSAIDS (Non-Steroidal AdvReac Intermediate GI Distress Verified 10/16/22 20:43 Anti-Inflamma - Social History Does the pt smoke?: No Smoking Status: Never smoker Does the pt drink ETOH?: Yes Does the pt have substance abuse?: No - Immunizations Immunizations are current?: Yes - POLST Patient has POLST: Yes PD ED PE NORMAL - Vitals Vital signs reviewed: Yes - General General: Alert and oriented X 3, Other (Patient sitting with her eyes closed, when she opens her eyes, she becomes dizzy) - HEENT HEENT: Atraumatic, PERRL, EOMI, Moist mucous membranes, Pharynx benign - Neck Neck: Supple, no meningeal sign - Cardiac Cardiac: RRR, Strong equal pulses - Respiratory Respiratory: No respiratory distress, Clear bilaterally - Abdomen Abdomen: Soft, Non tender, Non distended - Derm Derm: Warm and dry - Extremities Extremities: No edema, No calf tenderness / cord - Neuro Neuro: Alert and oriented X 3, supervisor photoengraving 2-12 intact, No motor deficit, No sensory deficit, Normal speech, Other (Positive Hallpike to the left, horizontal nystagmus to the left) Eye Opening: Spontaneous Motor: Obeys Commands Verbal: Oriented GCS Score: 15 - Psych Psych: Normal mood, Normal affect Results - Vitals Vitals: Vital Signs - 24 hr 08/07/23 08/07/23 18:53 20:31 Temperature 36 C L Heart Rate 86 95 Respiratory 28 H 16 Rate Blood Pressure 134/71 H 151/87 H O2 Saturation 100 99 Oxygen O2 Source Room air - EKG (time done) 1901 EKG releavant findings:: EKG personally interpreted by author of this note. Relevant findings are: Rate: Rate (enter#) (91) Rhythm: NSR Zullinger: Normal Intervals: Normal MI QRS: Normal Ischemia: Non specific changes (flattened t waves) - Labs Labs: Laboratory Tests 12/18/22 12/18/22 19:30 20:21 WBC 6.8 RBC 4.93 Hgb 12.9 Hct 43.1 MCV 87.4 MCH 26.2 L MCHC 29.9 L RDW 14.6 Plt Count 273 MPV 9.0 Neut # (Auto) 5.1 Lymph # (Auto) 1.2 L [place] # (Auto) 0.5 Eos # (Auto) 0.0 Baso # (Auto) 0.0 Absolute Nucleated RBC 0.00 Nucleated RBC % 0.0 Sodium 132 L Potassium 4.3 Chloride 103 Carbon Dioxide 24 Anion Gap 5.0 L BUN 26 H Creatinine 1.1 Estimated GFR (MDRD) 49 L Glucose 158 H Calcium 8.4 L Phosphorus 1.9 L Magnesium 1.8 Total Bilirubin 0.5 AST 17 ALT 21 Alkaline Phosphatase 56 Total Protein 6.8 Albumin 3.8 Globulin 3.0 Albumin/Globulin Ratio 1.3 Lipase 17 PD Medical Decision Making - ED course Complexity details: reviewed results, re-evaluated patient, considered differential, d/w patient, d/w family ED course: Patient with what appears to be sudden onset vertigo, likely BPPV given her history. No indication for emergent neuroimaging. No significant lab abnormalities. She was given IV fluids and droperidol. Symptoms resolved. No further nausea or vomiting. Ambulating without difficulty. She states she only has a small amount of vertigo remaining. She will follow-up with her vestibular specialist in the morning as scheduled. Patient counseled regarding signs and symptoms for which I believe and urgent re-evaluation would be necessary. Patient with good understanding of and agreement to plan and is comfortable going home at this time This document was made in part using voice recognition software. While efforts are made to proofread this document, sound alike and grammatical errors may occur. Departure - Departure Disposition: Home, Self Care Clinical Impression: BPPV (benign paroxysmal positional vertigo) Qualifiers: Laterality: left Qualified Code(s): H81.12 - Benign paroxysmal vertigo, left ear Condition: Good Instructions: ED BPV Vertigo Follow-Up: your,doctor tomorrow as scheduled [Other] Prescriptions: Promethazine [Phenergan] 25 mg PO Q6H PRN #10 tab PRN Reason: Nausea / Vomiting Comments: Your prescription was sent to [facility] in [place]. Please follow-up tomorrow as scheduled. Please return if you worsen. Go home and rest tonight. You can take meclizine tonight as well. Forms: PCP List
[2022-12-18 19:35] LABS: BASOPHILS % (AUTO) 0.6 %; EOSINOPHILS % (AUTO) 0.3 %; HCT - HEMATOCRIT 43.1 % (37.0-47.0); HGB - HEMOGLOBIN 12.9 g/dL (12.0-16.0); LYMPHOCYTES # (AUTO) 1.2 10^3/uL (1.5-3.5); LYMPHOCYTES % (AUTO) 17.1 %; MEAN CORPUSCULAR HEMOGLOBIN 26.2 pg (27.0-31.0); MEAN CORPUSCULAR HGB CONC 29.9 g/dL (32.0-36.0); MEAN CORPUSCULAR VOLUME 87.4 fL (81.0-99.0); MONOCYTES # (AUTO) 0.5 10^3/uL (0.0-1.0); MONOCYTES % (AUTO) 6.8 %; NEUTROPHILS # (AUTO) 5.1 10^3/uL (1.5-6.6); NEUTROPHILS % (AUTO) 74.8 %; PLT - PLATELET COUNT 273 10^3/uL (130-450); RED BLOOD COUNT 4.93 10^6/uL (4.20-5.40); RED CELL DISTRIBUTION WIDTH 14.6 % (12.0-15.0); WHITE BLOOD COUNT 6.8 x10^3/uL (4.8-10.8)
[2022-12-18 20:39] VITALS: BP 151/87; O2SAT 99
[2022-12-18 20:48] LABS: ALBUMIN 3.8 g/dL (3.2-5.5); ALBUMIN/GLOBULIN RATIO 1.3 (1.0-2.2); BILIRUBIN,TOTAL 0.5 mg/dL (0.2-1.0); CALCIUM 8.4 mg/dL (8.5-10.3); CREATININE 1.1 mg/dL (0.6-1.3); MAGNESIUM 1.8 mg/dL (1.7-2.3); PHOSPHORUS 1.9 mg/dL (3.7-7.2); POTASSIUM 4.3 mmol/L (3.5-4.5); TOTAL PROTEIN 6.8 g/dL (6.4-8.9)
== END 2022-12-18 21:13 | disposition home or self-care (01) ==
LOC: EDUNIT# → ED 18:47
DX: H81.12 Benign paroxysmal vertigo, left ear (principal); I10 Essential (primary) hypertension; Z79.899 Other long term (current) drug therapy
CPT/HCPCS: 36415; 80053; 83690; 83735; 84100; 85025; 93005; 96374; 99284

== ENCOUNTER 2023-06-14 14:11 | Outpatient (CLI) | payer MEDICARE ==
[2023-06-14 20:08] LABS: BASOPHILS % (AUTO) 0.7 %; EOSINOPHILS # (AUTO) 0.1 10^3/uL (0.0-0.7); EOSINOPHILS % (AUTO) 1.5 %; HCT - HEMATOCRIT 37.1 % (37.0-47.0); HGB - HEMOGLOBIN 11.2 g/dL (12.0-16.0); LYMPHOCYTES # (AUTO) 1.7 10^3/uL (1.5-3.5); LYMPHOCYTES % (AUTO) 30.5 %; MEAN CORPUSCULAR HEMOGLOBIN 26.5 pg (27.0-31.0); MEAN CORPUSCULAR HGB CONC 30.2 g/dL (32.0-36.0); MEAN CORPUSCULAR VOLUME 87.7 fL (81.0-99.0); MEAN PLATELET VOLUME 9.3 fL (7.9-10.8); MONOCYTES # (AUTO) 0.5 10^3/uL (0.0-1.0); MONOCYTES % (AUTO) 8.8 %; NEUTROPHILS # (AUTO) 3.2 10^3/uL (1.5-6.6); NEUTROPHILS % (AUTO) 58.3 %; PLT - PLATELET COUNT 318 10^3/uL (130-450); RED BLOOD COUNT 4.23 10^6/uL (4.20-5.40); RED CELL DISTRIBUTION WIDTH 14.2 % (12.0-15.0); WHITE BLOOD COUNT 5.5 x10^3/uL (4.8-10.8)
[2023-06-14 20:22] LABS: ALBUMIN 4.1 g/dL (3.2-5.5); ALBUMIN/GLOBULIN RATIO 1.4 (1.0-2.2); BILIRUBIN,TOTAL 0.3 mg/dL (0.2-1.0); CALCIUM 9.6 mg/dL (8.5-10.3); POTASSIUM 3.9 mmol/L (3.5-4.5); TOTAL PROTEIN 7.1 g/dL (6.4-8.9)
[2023-06-14 20:31] LABS: ESTIMATED AVERAGE GLUCOSE 117 mg/dL (70-100); HEMOGLOBIN A1c% 5.7 % (4.27-6.07)
[2023-06-14 20:37] LABS: THYROID STIMULATING HORMONE 2.28 uIU/mL (0.34-5.60)
== END 2023-06-14 14:12 | disposition home or self-care (01) ==
LOC: LAB.S 14:11
PROVIDERS: ATTEND Physician Assistant Medical
DX: K80.71 Calculus of gallbladder and bile duct without cholecystitis with obstruction (principal); Z13.9 Encounter for screening, unspecified
CPT/HCPCS: 36415; 80053; 83036; 83690; 84443; 85025

== ENCOUNTER 2023-07-09 11:27 | Emergency (ER) | payer MEDICARE ==
--- NOTE | 2023-07-09 12:46 | ED Physician Documentation ---
PD HPI LOWER EXT INJURY - Stated complaint Stated Complaint: HIP PX - Chief complaint Chief Complaint: Ext Problem - History obtained from History obtained from: Patient - History of Present Illness PD HPI LOW EXT INJURY LOCATION: Left - Additional information Additional information: 72-year-old woman with remote breast cancer in remission presents with about 3 weeks of worsening left hip pain. It is present at rest but mild but much worse if she changes position or tries to walk on it. Several weeks prior to this starting she fell and hit her back but does not think her hip was injured then and the hip did not really hurt then for several weeks after that. No more recent trauma. She is never had this before. 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 : Incontinence, Other HEENT: Chronic sinusitis Psych: Depression, Anxiety, Panic attacks, Claustrophobia Musculoskeletal: None Derm: Rosacea - Past Surgical History Past Surgical History: Yes General: Cholecystectomy, Colonoscopy /PRINTING SERVICES COORDINATOR: Hysterectomy, Other - Present Medications Home Medications: Ambulatory Orders Medication Instructions Recorded Confirmed Cholecalciferol (Vitamin D3) 5,000 unit PO DAILY 02/02/15 01/03/23 [Vitamin D3] Multivitamin [Multivitamins] 1 each PO DAILY 02/02/15 01/03/23 lisinopriL [Lisinopril] 20 mg PO DAILY 02/02/15 01/03/23 Omeprazole 40 mg PO DAILY 09/07/15 01/03/23 buPROPion [Wellbutrin Sr] 300 mg PO DAILY 01/11/16 01/03/23 Anastrozole 1 mg PO DAILY 90 Days #90 tablet 07/18/18 01/03/23 Cetirizine [ZyrTEC] 10 mg PO DAILY 11/18/18 01/03/23 Fluticasone [Flonase] 2 sprays MARILUZ HS 10/09/22 01/03/23 Ondansetron Odt [Zofran Odt] 4 mg SL TID PRN 10/17/22 01/03/23 Tretinoin [Retin-A] 0.5 gm TOP HS 10/17/22 01/03/23 Venlafaxine ER [Effexor ER] 3 cap PO DAILY 10/17/22 01/03/23 Promethazine [Phenergan] 25 mg PO Q6H PRN #10 tab 12/18/22 01/03/23 oxyCODONE [Roxicodone] 5 mg PO Q4-6H PRN #15 tablet 07/09/23 - Allergies Allergies/Adverse Reactions: Allergies Allergy/AdvReac Type Severity Reaction Status Date / Time ciprofloxacin Allergy Intermediate Respiratory Verified 07/09/23 11:38 hydrocodone bitartrate * Allergy Intermediate Respiratory Verified 07/09/23 11:38 [From Vicodin] Sulfa (Sulfonamide Allergy Intermediate Respiratory Verified 07/09/23 11:38 Antibiotics) NSAIDS (Non-Steroidal AdvReac Intermediate GI Distress Verified 07/09/23 11:38 Anti-Inflamma - Social History Does the pt smoke?: No Smoking Status: Never smoker Does the pt drink ETOH?: Yes Does the pt have substance abuse?: No - Immunizations Immunizations are current?: Yes - POLST Patient has POLST: Yes PD ED PE NORMAL - Vitals Vital signs reviewed: Yes - General General: Alert and oriented X 3, No acute distress - Extremities Extremities: Other (She is tender over the greater trochanter/lateral left hip and has severe pain with range of motion especially external rotation. No pelvic tenderness.) - Neuro Neuro: Alert and oriented X 3, Normal speech - Psych Psych: Normal mood, Normal affect Results - Vitals Vitals: Vital Signs - 24 hr 07/09/23 07/09/23 11:38 15:43 Temperature 36.8 C Heart Rate 80 88 Respiratory 16 15 Rate Blood Pressure 160/90 H 138/70 H O2 Saturation 100 99 Oxygen O2 Source Room air - Rads (name of study) Pelvic CT showing osteoarthritic changes of left hip, subchondral stenosis, bilateral sacroiliitis and hip effusion. Relevant Findings:: Final report received, EMP independent interpretation of test PD Medical Decision Making - ED course ED course: She is been having progressive left hip pain without significant trauma. She does have a history of breast cancer so CT imaging was done to rule out any malignant findings. Thankfully there were none but did show the above findings which were discussed with the patient and orthopedic follow-up was advised. She did need something for pain and states she is intolerant of NSAIDs due to GI side effects. Departure - Departure Disposition: 01 Home, Self Care Clinical Impression: Hip pain, left Condition: Good Record reviewed to determine appropriate education?: Yes Instructions: Osteoarthritis Follow-Up: Orthopedic Care [Provider Group] Prescriptions: oxyCODONE [Roxicodone] 5 mg PO Q4-6H PRN #15 tablet PRN Reason: Pain Comments: As discussed, the CT shows bilateral sacroiliitis, arthritis in the hip joint with subchondral cysts, and fluid in the left hip joint. You should follow-up with our orthopedic clinic, The numbers on this form and call for an appointment. I sent your prescription electronically to [facility] in [place]. I am prescribing a short course of narcotic pain medication for you. These are potentially dangerous and addictive medications that should be used carefully. These medications may constipate you. Take an mnfu-efz-zoqnqaa stool softener (docusate) twice daily with plenty of water while taking these medications. If you go 24 hours without a bowel movement, take xurg-ilr-tqdzzok miralax, per package instructions. Do not drink or drive while taking these medications. If you received narcotic or sedating medications while in the emergency department, do not drive for 24 hours. Store this medication in a safe, secure place and out of reach of children. It is a violation of federal law to give or sell this medication to another person or to use in a manner other than prescribed. The ED will not refill narcotic prescriptions, including prescriptions lost or stolen. To dispose of unwanted medications: 1. [facility] provides a drop box for medication in pill form only (no liquids) 8:00 am to 4:30 p.m. Sunday-Sunday in the lobby of the [facility], [address] [place] [address]. Empty pills into ziplock bag before disposal. Call [phone] for information. 2.[employer] is a free service available to all [facility] residents. Go to [email or web address]://[email or web address].[email or web address]/locations/[email or web address]/ Note that many narcotic pain relievers also contain Tylenol/acetaminophen. Please ensure that your total dose of acetaminophen from all sources does not exceed 3 g (3000 mg) per day. Forms: PCP List Discharge Date/Time: 07/09/23 15:44
--- NOTE | 2023-07-09 15:09 | CT Report ---
PROCEDURE: Pelvis WO INDICATIONS: L hip pain TECHNIQUE: Noncontrast 3 mm axial sections acquired through the bony pelvis, with coronal and sagittal reformatt ing. For radiation dose reduction, the following was used: automated exposure control, adjustment of mA and/or kV according to patient size. COMPARISON: None. FINDINGS: Image quality: Excellent. Bones: No displaced fracture. Moderate left hip osteoarthritis with subchondral cystic change. Bila teral degenerative sacroiliitis. Soft tissues: Moderate to large left hip effusion. IMPRESSION: Moderate to large left hip joint effusion. No displaced fracture. Reviewed by: Reji Ramsey MD on 07/09/2023 3:08 PM PST Approved by: Reji Ramsey MD on 07/09/2023 3:08 PM PST Station ID: [id number]
[2023-07-09] MEDS: oxyCODONE 5 MG TABLET PO STA (15:30)
[2023-07-09 15:48] VITALS: BP 138/70; O2SAT 99
== END 2023-07-09 15:44 | disposition home or self-care (01) ==
LOC: ED 11:27
DX: M25.552 Pain in left hip (principal); I10 Essential (primary) hypertension; Z79.899 Other long term (current) drug therapy
CPT/HCPCS: 72192; 99284; A9270

== ENCOUNTER 2023-07-24 08:00 | Outpatient (CLI) | payer MEDICARE ==
--- NOTE | 2023-07-24 15:20 | XRAY Report ---
PROCEDURE: Hip 2 View LT INDICATIONS: LEFT HIP PAIN TECHNIQUE: 2 view(s) of the hip were acquired. COMPARISON: CT pelvis 07/09/2023 FINDINGS: Bones: No fractures or dislocations. 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 No suspic ious bony lesions. The visualized pelvic ring appears intact. Degenerative changes of the visualize d lower lumbar spine and pubic symphysis. Soft tissues: No suspicious soft tissue calcifications or masses. IMPRESSION: No acute bony abnormality. 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 Reviewed by: Kwabena Valadez MD on 07/24/2023 3:19 PM PDT Approved by: Kwabena Valadez MD on 07/24/2023 3:19 PM PDT Station ID: [id number]
== END 2023-07-24 23:59 | disposition home or self-care (01) ==
LOC: DI.WOS 08:00
PROVIDERS: ATTEND Physician Assistant Surgical
DX: M16.0 Bilateral primary osteoarthritis of hip (principal)